=== PATIENT | male | born 1995 | race Hispanic/Latino ===

== ENCOUNTER → 2018-12-01 11:31 | Outpatient (CLI) | payer OTHER, SELFPAY ==
--- NOTE | 2018-12-01 11:33 | DI.RAD.S_ITS ---
PROCEDURE: XR LUMBAR SPINE 2-3V INDICATIONS: low back pain, radiates down left leg TECHNIQUE: 3 views of the lumbar spine were acquired. COMPARISON: [facility], , -SPINE 2-3 VIEWS, 12/08/2011, 11:46. FINDINGS: Bones: 5 pae-set-faerocn vertebrae are present. There is straightening of normal lumbar lordosis. Mild degenerative endplate changes at L4-5 and L5-S1 levels are seen. No vertebral body compression fractures. No suspicious bony lesions. Soft tissues: Overlying bowel gas pattern is normal. No suspicious soft tissue calcifications. IMPRESSION: No acute compression fracture or spondylolisthesis of lumbar spine. Mild degenerative endplate changes in lower lumbar spine. Dictated by: Garcia Crenshaw M.D. on 12/01/2018 at 13:42 Approved by: Garcia Crenshaw M.D. on 12/01/2018 at 13:43
== END ==
PROVIDERS: PCP Family Medicine; Visit Provider Family Medicine
DX: M54.5 Low back pain (principal); M47.26 Other spondylosis with radiculopathy, lumbar region; M47.27 Other spondylosis with radiculopathy, lumbosacral region
CPT/HCPCS: 72100

== ENCOUNTER → 2019-03-03 07:00 | Outpatient (CLI) | payer OTHER, SELFPAY ==
[2019-03-03 08:32] LABS: Alanine Aminotransferase 108 IU/L (21-72); Albumin 4.4 g/dL (3.5-5.0); Albumin Globulin Ratio 1.2 (1.0-2.8); Alkaline Phosphatase 69 U/L (38-126); Aspartate Aminotransferase 75 IU/L (17-59); BUN Creatinine Ratio 23.3 (6-22); Bilirubin Total 0.5 mg/dL (0.2-1.3); Blood Urea Nitrogen 14 mg/dL (9-20); Calcium 8.9 mg/dL (8.4-10.2); Carbon Dioxide 25 mmol/L (22-32); Chloride 102 mmol/L (98-107); Estimated Glomerular Filt Rate > 60.0 mL/min (>60); Globulin 3.6 g/dL (1.7-4.1); Glucose 150 mg/dL (70-100); HEMOLYSIS < 15 (0-50); Potassium 3.9 mmol/L (3.4-5.1); Sodium 139 mmol/L (137-145)
[2019-03-03 08:43] LABS: Vitamin D 25 Hydroxy (D3) 20.1 ng/mL (30.0-100.0)
[2019-03-03 09:01] LABS: Thyroid Stimulating Hormone 1.88 uIU/mL (0.47-4.68)
[2019-03-05 17:23] LABS: Triiodothyronine T3 Total 164 ng/dL (76-181)
== END ==
PROVIDERS: PCP Family Medicine; Visit Provider Internal Medicine
DX: E55.9 Vitamin D deficiency, unspecified (principal); R63.5 Abnormal weight gain; R73.9 Hyperglycemia, unspecified
CPT/HCPCS: 36415; 80053; 82306; 83036; 84439; 84443; 84480

== ENCOUNTER → 2019-12-10 08:31 | Outpatient (CLI) | payer OTHER, SELFPAY ==
[2019-12-10 11:12] LABS: Alanine Aminotransferase 99 IU/L (<50); Albumin 4.4 g/dL (3.5-5.0); Albumin Globulin Ratio 1.4 (1.0-2.8); Alkaline Phosphatase 96 U/L (38-126); Aspartate Aminotransferase 85 IU/L (17-59); BUN Creatinine Ratio 19.6 (6-22); Bilirubin Total 0.7 mg/dL (0.2-1.3); Blood Urea Nitrogen 11 mg/dL (9-20); Calcium 9.4 mg/dL (8.4-10.2); Carbon Dioxide 26 mmol/L (22-32); Chloride 98 mmol/L (98-107); Cholesterol 265 mg/dL (140-199); Estimated Glomerular Filt Rate > 60.0 mL/min (>60); Globulin 3.2 g/dL (1.7-4.1); Glucose 382 mg/dL (70-100); HDL Cholesterol 22 mg/dL (40-60); HEMOLYSIS < 15 (0-50); Potassium 4.6 mmol/L (3.4-5.1); Sodium 134 mmol/L (137-145); Total Protein 7.6 g/dL (6.3-8.2)
[2019-12-10 12:13] LABS: Triglycerides 879 mg/dL (35-150)
[2019-12-10 16:10] LABS: Creatinine Urine Random 70.5 mg/dL
[2019-12-10 16:14] LABS: Microalbumi Creatinin Ratio Ur 56.7 ug/mg CR (<30)
[2019-12-10 16:43] LABS: Hemoglobin A1C% w Est Avg Glu > 14.0 % (4.0-6.0)
== END ==
PROVIDERS: PCP Family Medicine; Referring Provider Physician Assistant; Visit Provider Physician Assistant
DX: Z13.220 Encounter for screening for lipoid disorders (principal); E11.9 Type 2 diabetes mellitus without complications; R20.0 Anesthesia of skin; R20.2 Paresthesia of skin; E66.01 Morbid (severe) obesity due to excess calories
CPT/HCPCS: 36415; 80053; 80061; 82043; 82570; 83036

== ENCOUNTER → 2020-01-25 10:02 | Outpatient (CLI) | payer OTHER, SELFPAY ==
--- NOTE | 2020-01-25 14:56 | DIET.PN ---
Diabetes Intake: Initial Assessment Assess: Mr. Morgan is a 25 YOM referred for type 2 diabetes. He reports he has had pre-diabetes for several years and this is a new diagnosis to him. He has lost over 50 lbs in the last few months through dietary changes. He endorses diabetes signs/symptoms including blurry vision, cramping, sleep apnea and excessive thirst. He works outside all day and states he is generally too tired to exercise in the evening, but is willing to start in order to feel better. He has been prescribed metformin on several occasions by Dr. Fermin at the [facility] clinic and most recent from Dr. Arreguin. He discontinues each time within a week due to severe GI complications. He does not have a meter and has not been monitoring his BG. Labs: Per pt report: A1c: > 14 MicroAlb: 56.7 Chol: 265 LDL: TNP HDL: 22 Tr Meds: metformin (has not been taking. Recommended starting with 500 mg BID) Diet: per 24 hr recall: B: egg w/ carbajal or sausage; yogurt w/ granola L: paco alaniz D: pro, veg, starch Wt: 292lb Ht: 71in BMI: 40.72 BP: DX: Altered nutrition related laboratory values related to impaired glucose metabolism, lack of previous exposure to nutrition information as evidenced by pt report, diagnosis of diabetes, previous diet high in refined carbohydrates. Intervention: 1. Completed intake assessment. Discussed barriers to care. 2. Discussed pathophysiology of diabetes. Reviewed A1c and its correlation to blood glucose numbers. Discussed recommended BG ranges. 3. Discussed importance of self-monitoring, how often, and when to check. Will provide glucometer instruction when he receives his meter. 4. Reviewed hyper/hypoglycemia and treatment. 5. Reviewed safe disposal of equipment (strip/lancets/insulin needles). 6. Discussed importance of medication management. Suggested taking 500mg metformin in the evening. Will discuss the option of metformin XR. 7. Created SMART goals for pt self-care and success. 8. Discussed program curriculum outline and class needs based on individual goals. SMART Goals: 1. Pt goal weight of 270lb through continued dietary improvements and beginning an exercise program including cardiovascular and resistance training for 30min daily. Monitor/Evaluate: Anticipate excellent compliance. Pt will attend full DSME program. Basic Nutrition class scheduled for Feb 01.
== END ==
PROVIDERS: PCP Family Medicine; Referring Provider Family Medicine; Visit Provider Family Medicine
DX: E11.9 Type 2 diabetes mellitus without complications (principal); E66.9 Obesity, unspecified; Z68.41 Body mass index [BMI] 40.0-44.9, adult; Z71.3 Dietary counseling and surveillance
CPT/HCPCS: G0108

== ENCOUNTER → 2020-02-07 10:00 | Outpatient (CLI) | payer OTHER, SELFPAY ==
--- NOTE | 2020-02-07 12:12 | DIET.PN ---
Diabetes Physiology: Intervention 1. Diabetes physiology 2. Detecting and treatment of acute and chronic complications 3. Diagnosis of and difference in types of diabetes 4. Self-monitoring and pattern management a. Demonstrate glucometer and control testing b. Explain BG results and action to take when out of range. 5. Foot , eye, dental care 6. Medications a. Oral medication classification b. Injectable c. Insulin i. Injection protocol ii. Other delivery methods
== END ==
PROVIDERS: PCP Family Medicine; Referring Provider Family Medicine; Visit Provider Family Medicine
DX: E11.9 Type 2 diabetes mellitus without complications (principal)
CPT/HCPCS: G0109

== ENCOUNTER → 2020-02-09 08:41 | Outpatient (CLI) | payer OTHER, SELFPAY ==
[2020-02-09 10:46] LABS: BUN Creatinine Ratio 17.3 (6-22); Blood Urea Nitrogen 9 mg/dL (9-20); Calcium 9.1 mg/dL (8.4-10.2); Carbon Dioxide 27 mmol/L (22-32); Chloride 98 mmol/L (98-107); Estimated Glomerular Filt Rate > 60.0 mL/min (>60); Glucose 351 mg/dL (70-100); HEMOLYSIS < 15 (0-50); Sodium 135 mmol/L (137-145)
[2020-02-09 11:52] LABS: Folate 19.3 ng/mL (2.76-20.0); Vitamin B12 853 pg/mL (239-931)
[2020-02-09 11:54] LABS: Hemoglobin A1C% w Est Avg Glu > 14.0 % (4.0-6.0)
== END ==
PROVIDERS: PCP Family Medicine; Referring Provider Family Medicine; Visit Provider Family Medicine
DX: E11.59 Type 2 diabetes mellitus with other circulatory complications (principal)
CPT/HCPCS: 36415; 80048; 82607; 82746; 83036

== ENCOUNTER → 2020-02-21 14:37 | Outpatient (CLI) | payer OTHER, SELFPAY ==
--- NOTE | 2020-02-21 16:35 | DIET.PN ---
Diabetes: Healthy Eating 1 Intervention: ? Discussed pathophysiology of diabetes and impact of nutrition/diet on blood sugar control.? Discussed fed versus non-fed state.?? ? Reviewed importance of Balance, Variety, and Moderation. ? Discussed the effect of carbohydrates/protein/fat on blood sugar control.? ? Stressed importance of consistent carbohydrate intake at each meal and provided instructions for recommended servings/portions of carbohydrates/protein per meal. Provided educational material. ? Reviewed carbohydrate counting and measuring carbohydrate content via serving sizes and reading nutrition labels.? Provided handouts.?? ? Discussed the difference between simple versus complex carbohydrates and the effect of fiber on blood sugar control.? Discussed various methods to increase fiber content in diet. ? Discussed the plate method for creating more carbohydrate conscious balanced meals. ? Stressed importance of meal timing and not going >4-5 hours between meals. Encouraged adding protein to evening snack to support glucose control overnight. ? Discussed importance of making dietary habits part of lifestyle change.
== END ==
PROVIDERS: PCP Family Medicine; Referring Provider Family Medicine; Visit Provider Family Medicine
DX: E11.9 Type 2 diabetes mellitus without complications (principal); Z71.3 Dietary counseling and surveillance
CPT/HCPCS: G0109

== ENCOUNTER → 2020-03-01 10:01 | Outpatient (CLI) | payer OTHER, SELFPAY ==
--- NOTE | 2020-03-01 16:10 | DIET.PN ---
Diabetes: Healthy Eating 2 Intervention: Fats effects on glucose, weight, heart disease, cholesterol Sat Vs Unsat Protein- animal and plant based options Low, med, high fat meats Sugar substitutes Sodium Health claims Grocery shopping guidelines Eating away from home Alcohol Sick day guidelines Ketone Testing
== END ==
PROVIDERS: PCP Family Medicine; Referring Provider Family Medicine; Visit Provider Family Medicine
DX: E11.9 Type 2 diabetes mellitus without complications (principal); Z71.3 Dietary counseling and surveillance
CPT/HCPCS: G0109

== ENCOUNTER → 2020-03-15 10:07 | Outpatient (CLI) | payer OTHER, SELFPAY ==
--- NOTE | 2020-03-15 10:59 | DIET.PN ---
DIABETES Nutrition Initial Assessment:? ASSESS:??Mr. Morgan is a 25 yom?referred for type 2 diabetes seen as part of DSME program. He has made significant changes to his eating habits over the last several months including replacing starches with whole grains, increasing water intake, reducing sugar sweetened coffee drinks, increasing lean protein, and trying to eat 3 meals per day. He started insulin glargine in January titrating up from 20 u to 50 u 1 x/day. He endorses improvement in his blood sugar readings, however he is still running between 250-350. Recent A1c shows no improvement, but Saba reports improved energy and feeling in overall health and significantly reduced diabetes symptoms. He is active at work but is not engaging in regular exercise. ??? LABS: Per pt report:? A1c: >14 FB-250 Evenin-350 ? MEDS:?? lantus 50 u 1x/day ? DIET: Per 24-hour recall:? B: Arnaldo bread w/ eggs and carbajal, ? apple L: turkey sandwich D: Chicken w/ vegetables; corned beef w/ cabbage Eating Out: few times/week Changes in Appetite: none Nutrition Supplements: none ? Weight: 288 lb Height: 71in BMI: ? 40.2 ? Exercise:? none NUTRITION DX 1. Altered Nutrition related labs related to impaired glucose metabolism, lack of previous exposure to accurate nutrition information as evidenced by pt report, dx of diabetes, previous diet high in refined carbohydrates.? INTERVENTION(s): 1. Reviewed pathophysiology of diabetes and impact of nutrition/diet on blood sugar control.? Discussed fed versus non-fed state.?? 2. Discussed the effect of carbohydrates/protein/fat on blood sugar control.? Stressed importance of consistent carbohydrate intake at each meal and provided instructions for recommended servings/portions of carbohydrates/protein per meal. 3. Reviewed carbohydrate counting and measuring carbohydrate content via serving sizes and reading nutrition labels.? 4. Discussed the difference between simple versus complex carbohydrates and the effect of fiber on blood sugar control.? Discussed various methods to increase fiber content in diet. 5. Stressed importance of meal timing and not going >4-5 hours between meals. Encouraged adding protein to evening snack to support glucose control overnight. Patient agreeable. 6. Discussed healthy weight loss goals of 1-2lbs per week through diet and exercise.? Pt agreeable to joining local fitness center to incorporate strength training at least 3x/week. 7. Recommend monitoring fasting and alternating 2 hr PP mealtime glucose. MONITOR/EVALUATE: Anticipate good compliance.? Follow up to discuss medication management. Discussed possibility of splitting insulin dose to 25u am and pm. Will follow up with Dr. Arreguin.
== END ==
PROVIDERS: PCP Family Medicine; Referring Provider Family Medicine; Visit Provider Family Medicine
DX: E11.65 Type 2 diabetes mellitus with hyperglycemia (principal); E66.9 Obesity, unspecified; Z68.41 Body mass index [BMI] 40.0-44.9, adult; Z71.3 Dietary counseling and surveillance; Z79.4 Long term (current) use of insulin
CPT/HCPCS: G0109

== ENCOUNTER → 2020-04-24 06:55 | Outpatient (CLI) | payer OTHER, SELFPAY ==
[2020-04-24 09:08] LABS: Blood Urea Nitrogen 13 mg/dL (9-20); Calcium 9.1 mg/dL (8.4-10.2); Carbon Dioxide 29 mmol/L (22-32); Chloride 102 mmol/L (98-107); Cholesterol 213 mg/dL (140-199); Estimated Glomerular Filt Rate > 60.0 mL/min (>60); Glucose 232 mg/dL (70-100); HDL Cholesterol 32 mg/dL (40-60); HEMOLYSIS < 15 (0-50); LDL Cholesterol Calculated 134 mg/dL (<100); Sodium 137 mmol/L (137-145); Triglycerides 237 mg/dL (35-150)
[2020-04-24 09:18] LABS: Creatinine Urine Random 187.5 mg/dL; Hemoglobin A1C% w Est Avg Glu 12.6 % (4.0-6.0)
[2020-04-24 09:24] LABS: Microalbumi Creatinin Ratio Ur 29.3 ug/mg CR (<30); Microalbumin Urine Random 5.5 mg/dL (0-1.6)
== END ==
PROVIDERS: PCP Family Medicine; Referring Provider Family Medicine; Visit Provider Family Medicine
DX: E11.65 Type 2 diabetes mellitus with hyperglycemia (principal)
CPT/HCPCS: 36415; 80048; 80061; 82043; 82570; 83036

== ENCOUNTER → 2020-07-19 12:23 | Outpatient (CLI) | payer OTHER, SELFPAY ==
--- NOTE | 2020-07-19 15:48 | DIET.PN ---
Diabetes Follow Up Assess: Met for Mr. Morgan?s follow up visit. His A1c has come down slightly as well as his total cholesterol and triglycerides. He reports lower fasting readings, but evening blood sugars remain extremely elevated. Since our last visit he started metformin XR 1000mg qd, increased his lantus to 70u am and 75u pm and was placed on statin therapy. He admits he has not been exercising and that his eating habits have not been very good since the holidays. He presents with concerns regarding insulin dosage and continued hyperglycemia. He complains of a herniated disc from high school that has been increasingly bothering him over the last few months. He is interested in discussing a cortisone shot or possible surgery. I encouraged him to focus on weight loss to start. Labs: A1c: 12.6 FB?s 2hrPP: 250-270 Meds: metformin XR 1000mg evening; lantus 70u am/75u pm Dietary changes: na Ht: 71in Wt: 304lb BMI: 42.4 Nutrition DX: Altered nutrition related laboratory values related to impaired glucose metabolism, lack of previous exposure to nutrition information as evidenced by pt report, diagnosis of diabetes, previous diet high in refined carbohydrates. Intervention: 1. Completed follow up assessment. Reviewed barriers to care. 2. Reviewed new labs and importance of continued BG monitoring. 3. Discussed medication management. Considering patients concerns with high glargine dosing, discussed considering meal-time insulin. Discussed instruction in depth. Pt not thrilled but will to discuss further for better glucose control. Will follow up with provider Dr. Arreguin. 4. Reviewed SMART goals and made modifications where appropriate including wt management, activity, and A1c goals. 5. Discussed plan for ongoing support. Provided information for continued support and success. Monitor/Evaluate: Pt will follow up in 3 mo to discuss new labs and barriers to care.
== END ==
PROVIDERS: PCP Family Medicine; Referring Provider Family Medicine; Visit Provider Family Medicine
DX: E11.65 Type 2 diabetes mellitus with hyperglycemia (principal); E66.9 Obesity, unspecified; Z79.4 Long term (current) use of insulin; Z68.41 Body mass index [BMI] 40.0-44.9, adult; Z71.3 Dietary counseling and surveillance
CPT/HCPCS: G0109

== ENCOUNTER → 2020-07-23 07:33 | Outpatient (CLI) | payer OTHER, SELFPAY ==
[2020-07-23 08:41] LABS: Hemoglobin A1C% w Est Avg Glu 10.7 % (4.0-6.0)
[2020-07-23 08:59] LABS: BUN Creatinine Ratio 19.4 (6-22); Blood Urea Nitrogen 12 mg/dL (9-20); Carbon Dioxide 30 mmol/L (22-32); Chloride 103 mmol/L (98-107); Estimated Glomerular Filt Rate > 60.0 mL/min (>60); Glucose 292 mg/dL (70-100); HEMOLYSIS < 15 (0-50); Potassium 4.4 mmol/L (3.4-5.1); Sodium 138 mmol/L (137-145)
== END ==
PROVIDERS: PCP Family Medicine; Referring Provider Family Medicine; Visit Provider Family Medicine
DX: E11.65 Type 2 diabetes mellitus with hyperglycemia (principal)
CPT/HCPCS: 36415; 80048; 83036

== ENCOUNTER → 2020-08-27 11:38 | Outpatient (CLI) | payer OTHER, SELFPAY ==
--- NOTE | 2020-08-27 11:39 | DI.RAD.S_ITS ---
PROCEDURE: XR LUMBAR SPINE 2-3V INDICATIONS: Lumbar spine pain TECHNIQUE: 3 views of the lumbar spine were acquired. COMPARISON: [facility], CR, XR LUMBAR SPINE 2-3V, 12/01/2018, 11:35. FINDINGS: Bones: No fracture. Levocurvature centered at L2-L3. Multilevel degenerative endplate sclerosis and spurring. Diffuse facet arthropathy. Diffuse mild narrowing of the lumbar disc spaces. Soft tissues: Overlying bowel gas pattern is normal. No suspicious soft tissue calcifications. IMPRESSION: Mild lumbar spondylosis and facet disease. Mild levocurvature . Dictated by: Rolf Reardon M.D. on 08/27/2020 at 15:59 Approved by: Rolf Reardon M.D. on 08/27/2020 at 16:00
== END ==
PROVIDERS: PCP Family Medicine; Referring Provider Family Medicine; Visit Provider Family Medicine
DX: M54.5 Low back pain (principal); M47.816 Spondylosis without myelopathy or radiculopathy, lumbar region
CPT/HCPCS: 72100

== ENCOUNTER 2020-09-16 11:55 | Emergency (ER) | payer OTHER, SELFPAY ==
[2020-09-16] VITALS (10 sets, daily range): BP systolic 132–146; BP diastolic 59–94; PULSE 58–87; RESP 20–22; TEMP 36.7; O2SAT 96–99; BMI 43.9
[2020-09-16 12:29] LABS: Add Manual Diff / Slide Review NO; Basophils Absolute Auto 100 /uL (0-100); Basophils Percent Auto 1.1 % (0-2); Eosinophils Absolute Auto 200 /uL (0-450); Eosinophils Percent Auto 3.2 % (2-4); Hematocrit 49.4 % (41-53); Hemoglobin 16.3 g/dL (13.5-17.5); Lymphocytes Absolute Auto 2000 /uL (1100-4500); Mean Corpuscular HGB Conc 33.1 % (30-36); Mean Corpuscular Hemoglobin 28.5 PG (26-34); Monocytes Absolute Auto 400 /uL (0-900); Monocytes Percent Auto 5.9 % (3-14); Neutrophils Absolute Auto 4900 /uL (1500-7000); Neutrophils Percent Auto 63.8 % (50-75); Platelet Count 166 X10^3/uL (150-400); Red Blood Cell Count 5.74 X10^6/uL (4.5-5.9); Red Cell Distribution Width 13.4 % (11.6-14.8); White Blood Cell Count 7.6 X10^3/uL (4.5-11.0)
[2020-09-16 12:32] LABS: INR 1.1 (0.9-1.3); Prothrombin Time 12.8 SECONDS (10.1-12.7)
[2020-09-16 12:35] LABS: PTT Partial Thromboplastin Tim 37 SECONDS (26.4-36.2)
[2020-09-16 12:37] LABS: Alanine Aminotransferase 93 IU/L (<50); Albumin 4.5 g/dL (3.5-5.0); Albumin Globulin Ratio 1.3 (1.0-2.8); Alkaline Phosphatase 72 U/L (38-126); Aspartate Aminotransferase 60 IU/L (17-59); BUN Creatinine Ratio 14.3 (6-22); Bilirubin Total 0.4 mg/dL (0.2-1.3); Blood Urea Nitrogen 8 mg/dL (9-20); Carbon Dioxide 26 mmol/L (22-32); Chloride 102 mmol/L (98-107); Estimated Glomerular Filt Rate > 60.0 mL/min (>60); Globulin 3.6 g/dL (1.7-4.1); Glucose 288 mg/dL (70-100); HEMOLYSIS 18 (0-50); Lipase 49 U/L (23-300); Potassium 4.5 mmol/L (3.4-5.1); Sodium 136 mmol/L (137-145); Total Protein 8.1 g/dL (6.3-8.2)
--- NOTE | 2020-09-16 13:38 | ED_ITS ---
HPI - Abdominal Pain General Chief Complaint: Abdominal Pain Stated Complaint: Lower Right Side Abd Pain, Black Stool Time Seen by Provider: 09/16/20 12:59 Source: patient Mode of arrival: Ambulatory Limitations: no limitations History of Present Illness HPI narrative: Patient is a 25-year-old male with BMI greater than 40 history of diabetes presenting with right lower quadrant pain which started today. He actually has had some diarrhea which started yesterday and has had some abdominal pain which is localized in his right side. He states that it hurts whenever he walks. He did take Pepto-Bismol yesterday and is noticing some black stools. He denies any nausea vomiting or fever. He does not need anythi ng for pain at this time. He was able to eat full breakfast this morning. He denies any flank pain no painful or frequent urination. MD complaint: abdominal pain Onset (ago): day(s) Pain Consistency: constant Severity: moderate Quality: stabbing Radiation: none Related Data Previous Rx's Medication Instructions Recorded glucose meter,test strips,lancets #1 ea 01/25/20 test strips #60 each 02/09/20 lancets (Ultra touch 2 meter) #100 each 04/17/20 solostar pen needles #100 each 04/17/20 atorvastatin 20 mg tablet 20 mg PO BEDTIME #90 tab 04/24/20 metformin 1,000 mg tablet 1,000 mg PO BID #60 tab 05/03/20 lisinopril 10 mg tablet 10 mg PO DAILY #90 tab 07/23/20 insulin glargine 100 unit/mL (3 See Rx Instructions SUBCUT 08/06/20 mL) subcutaneous pen .COMPLEX #90 ml Allergies Allergy/AdvReac Type Severity Reaction Status Date / Time cat dander [CAT DANDER] Allergy Unknown Verified 04/24/20 08:55 Penicillins AdvReac Intermediate VOMITING Verified 04/24/20 08:55 Review of Systems Review of Systems ROS Unobtainable: All systems reviewed & are unremarkable except as noted in HPI and below Constitutional Constitutional: Denies chills, Denies fever(s), Denies lethargy and Denies weakness ENT Ears, Nose, Mouth, and Throat: Denies vertigo and Denies dizziness Cardiovascular Cardiovascular: Denies chest pain, Denies irregular heart rhythm, Denies lightheadedness, Denies palpitations, Denies dyspnea, Denies dyspnea on exertion and Denies orthopnea Respiratory Respiratory: Denies cough, Denies dyspnea, Denies dyspnea on exertion and Denies wheezing Gastrointestinal Gastrointestinal: Reports as per HPI, Reports abdominal pain, Reports change in bowel habits, Reports diarrhea, Denies nausea and Denies vomiting Genitourinary Genitourinary: Denies urinary hesitancy and Denies urinary urgency Genitourinary: Denies urinary hesitancy and Denies urinary urgency Musculoskeletal Musculoskeletal: Denies back pain and Denies myalgias Integumentary/Breasts Skin/Breast: Denies pruritus, Denies erythema, Denies rash and Denies wounds Neurologic Neurologic: Denies abnormal movements, Denies vertigo, Denies dizziness and Denies weakness Endocrine Endocrine: Denies palpitations Allergic/Immunologic Allergic/Immunologic: Denies wheezing Patient History Medical History (Updated 09/16/20 @ 14:46 by Loly Parra DO) Diabetes mellitus Fatigue (~2016) Long-term insulin use in type 2 diabetes Morbid obesity with body mass index (BMI) of 40.0 to 49.9 Nocturnal hypoxemia (06/17/19) Obstructive sleep apnea (~06/17/19) Snoring (~2014) Surgical History Anesthesia History of third molar tooth extraction (~1999) Family History Father Diabetes mellitus Grandmother Schizophrenia Bipolar 1 disorder Mother Diabetes mellitus Hypertension Obesity Social History marital status: unmarried,single Smoking Status: Current every day smoker alcohol intake: current substance use type: marijuana eating out: 1-3 times/week Type(s) of exercise: none Smoking Status: Current every day smoker alcohol intake frequency: 0-2 drinks per day Substance Use Type: marijuana Exam Initial Vital Signs Initial Vital Signs: Vital Signs Temperature 98.1 F 09/16/20 12:05 Pulse Rate 84 09/16/20 12:05 Respiratory Rate 20 09/16/20 12:05 Blood Pressure 144/94 H 09/16/20 12:05 Pulse Oximetry 97 09/16/20 12:05 GENERAL: Well-appearing 25-year-old male and in no acute distress. HEENT: Head atraumatic,EOMI, pupils reactive, face symmetric, moist mucous membranes CARDIOVASCULAR: Regular rate and rhythm without murmurs, rubs or gallops. RESPIRATORY: Breath sounds equal bilaterally, no wheezes rales or rhonchi. ABDOMEN: Soft tender right lower quadrant no guarding or rebound EXTREMITIES: Normal range of motion, no clubbing or edema. Neurovascularly intact NEUROLOGICAL: Alert and oriented x4.Normal gait and speech. SKIN: Warm, dry, no laceration, no petechiae, no rashes or lesions. Course Orders Ordered: ED Orders 09/16/20 12:16 Complete Blood Count AUTO DIFF Stat Comprehensive Metabolic Panel Stat Lipase Stat Partial Thromboplastin Time Stat Prothrombin Time INR Stat 09/16/20 12:19 EKG-12 Lead Stat 09/16/20 13:47 CT abdomen pelvis w con Stat Vital Signs Vital signs: Vital Signs - 8 hr 09/16/20 12:05 09/16/20 12:27 09/16/20 12:30 Temperature 98.1 F Pulse Rate 84 87 83 Respiratory Rate 20 Blood Pressure 144/94 H 136/63 Pulse Oximetry 97 97 96 09/16/20 13:00 09/16/20 13:16 09/16/20 13:30 Temperature Pulse Rate 71 85 80 Respiratory Rate Blood Pressure 146/75 H 135/68 Pulse Oximetry 96 97 97 09/16/20 14:02 09/16/20 14:26 09/16/20 14:30 Temperature Pulse Rate 83 83 58 L Respiratory Rate Blood Pressure 141/63 H 132/59 L Pulse Oximetry 98 97 96 09/16/20 14:53 Temperature Pulse Rate 79 Respiratory Rate 22 Blood Pressure Pulse Oximetry 99 MDM - Abdominal Pain Lab Data Attestation: I reviewed the patient's lab results. Result diagrams: 09/16/20 12:16 09/16/20 12:16 Labs: Lab Results 09/16/20 09/16/20 09/16/20 Range/Units 12:16 12:16 12:16 WBC 7.6 (4.5-11.0) X10^3/uL RBC 5.74 (4.5-5.9) X10^6/uL Hgb 16.3 (13.5-17.5) g/dL Hct 49.4 (41-53) % MCV 86.0 (80-100) fL MCH 28.5 (26-34) PG MCHC 33.1 (30-36) % RDW 13.4 (11.6-14.8) % Plt Count 166 (150-400) X10^3/uL Neut % (Auto) 63.8 (50-75) % Lymph % (Auto) 26.0 (25-40) % Avery % (Auto) 5.9 (3-14) % Eos % (Auto) 3.2 (2-4) % Baso % (Auto) 1.1 (0-2) % Neut # (Auto) 4900 (9297-0015) /uL Lymph # (Auto) 2000 (5503-2089) /uL Avery # (Auto) 400 (0-900) /uL Eos # (Auto) 200 (0-450) /uL Baso # (Auto) 100 (0-100) /uL PT 12.8 H (10.1-12.7) SECONDS INR 1.1 (0.9-1.3) APTT 37 H (26.4-36.2) SECONDS Sodium 136 L (137-145) mmol/L Potassium 4.5 (3.4-5.1) mmol/L Chloride 102 (98-107) mmol/L Carbon Dioxide 26 (22-32) mmol/L BUN 8 L (9-20) mg/dL Creatinine 0.56 L (0.66-1.25) mg/dL Estimated GFR > 60.0 (>60) mL/min BUN/Creatinine Ratio 14.3 (6-22) Glucose 288 H (70-100) mg/dL Calcium 9.0 (8.4-10.2) mg/dL Total Bilirubin 0.4 (0.2-1.3) mg/dL AST 60 H (17-59) IU/L ALT 93 H (<50) IU/L Alkaline Phosphatase 72 (38-126) U/L Total Protein 8.1 (6.3-8.2) g/dL Albumin 4.5 (3.5-5.0) g/dL Globulin 3.6 (1.7-4.1) g/dL Albumin/Globulin Ratio 1.3 (1.0-2.8) Lipase 49 (23-300) U/L Point of care testing: Urine Dip Bedside Urine Glucose 1000 mg/dl Bedside Urine Bilirubin - Negative Bedside Urine Ketone - Negative Urine Specific Jackson 1.025 Bedside Urine Occult Blood - Negative Bedside Urine pH 6 Bedside Urine Protein - Negative Bedside Urine Urobilinogen - Negative Bedside Urine Nitrite - Negative Bedside Urine Leukocytes - Negative Esterase Imaging Data CT scan - abdomen/pelvis: Radiologist's Impression: PROCEDURE: CT ABDOMEN PELVIS W CON INDICATIONS: rlq pain TECHNIQUE: After the administration of intravenous contrast, 5 mm thick sections acquired from the diaphragm to the symphysis. 5 mm coronal and sagittal reformats were acquired. For radiation dose reduction, the following was used: automated exposure control, adjustment of mA and/or kV according to patient size. COMPARISON: None. FINDINGS: Image quality: Excellent. ABDOMEN: Lung bases: Lung bases are clear. Heart size is normal. Solid organs: There is diffuse hypoattenuation of the liver consistent with fatty infiltration with mild relative sparing along the gallbladder fossa. The gallbladder appears within normal limits without calcified gallstones. Biliary system is non-dilated. Pancreas enhances normally. No peripancreatic fat stranding or fluid collections. No pancreatic duct dilatation. The spleen is normal in size. No adrenal nodules. Kidneys demonstrate no hydronephrosis. Peritoneum and bowel: Small bowel loops demonstrate normal wall thickness and caliber. The appendix is normal in appearance. There is colonic diverticulosis without acute diverticulitis. There is suggestion of mild wall thickening in the sigmoid colon, with evaluation limited by nondistention. No free fluid or air. Nodes and vessels: No retroperitoneal or mesenteric adenopathy by size criteria. Aorta and inferior vena cava are normal in size. Miscellaneous: No ventral hernias. PELVIS: Genitourinary: There is mild concentric bladder wall thickening with minimal pericystic fat stranding. Miscellaneous: No inguinal hernias or adenopathy. Bones: No suspicious bony lesions. No vertebral body compression fractures. IMPRESSION: 1. No evidence of appendicitis. 2. Hepatic steatosis. 3. Mild bladder wall thickening with minimal pericystic fat stranding. Findings may reflect a mild cystitis and correlation is recommended with urinalysis. 4. Suggestion of mild segmental wall thickening involving the sigmoid colon which may reflect a mild colitis. However, the findings may be artifactual due to nondistention of the bowel. Dictated by: Torres Stephenson M.D. on 09/16/2020 at 14:14 ECG Data Attestation: I personally reviewed and interpreted this ECG as follows: Prior ECG tracings: not available for review Interpretation: Normal sinus rhythm rate 79 p.r. interval 154 QRS [address] changes or T-wave inversions MDM Narrative Medical decision making narrative: Patient overall appears well no leukocytosis. A black stool seem to started after Pepto-Bismol although it is questionable. He says the diarrhea has completely stopped now. Hemoglobin hematocrit are within normal limits. At this time I suspect the abdominal pain is likely related to viral gastroenteritis. Discharge Plan Departure Patient Disposition: Home Clinical Impression: Abdominal pain Qualifiers: Abdominal location: right lower quadrant Qualified Code(s): R10.31 - Right lower quadrant pain Instructions: DI for Viral Gastroenteritis -- Adult, DI for Abdominal Pain- Adult Activity Restrictions/Additional Instructions: *You have been diagnosed with abdominal pain, gastritis *What to do: Here pain is probably related to a stomach virus with diarrhea. Her blood work and CT scan do not show any abnormality. There is no sign of infection. Pepto-Bismol can cause blackening of your stool. *Continue to take medications as directed *Follow up with your primary care provider in 2-3 days *Return to ER if you should have increasing pain, persistent diarrhea, persistent vomiting nausea or any new, worsening or concerning symptoms Prescriptions: No Action atorvastatin 20 mg tablet 20 mg PO BEDTIME Qty: 90 RF: 3 (DME) test strips Qty: 60 RF: 12 lisinopril 10 mg tablet 10 mg PO DAILY Qty: 90 RF: 3 (DME) glucose meter,test strips,lancets Qty: 1 RF: 0 (DME) lancets (Ultra touch 2 meter) Qty: 100 RF: 11 (DME) solostar pen needles Qty: 100 RF: 3 metformin 1,000 mg tablet 1,000 mg PO BID Qty: 60 RF: 0 Lantus Solostar U-100 Insulin 100 unit/mL (3 mL) insulin pen See Rx Instructions SUBCUT .COMPLEX Qty: 90 RF: 1 Referrals: Vel Arreguin MD [Primary Care Provider] -
--- NOTE | 2020-09-16 13:47 | DI.CT.S_ITS ---
PROCEDURE: CT ABDOMEN PELVIS W CON INDICATIONS: rlq pain TECHNIQUE: After the administration of intravenous contrast, 5 mm thick sections acquired from the diaphragm to the symphysis. 5 mm coronal and sagittal reformats were acquired. For radiation dose reduction, the following was used: automated exposure control, adjustment of mA and/or kV according to patient size. COMPARISON: None. FINDINGS: Image quality: Excellent. ABDOMEN: Lung bases: Lung bases are clear. Heart size is normal. Solid organs: There is diffuse hypoattenuation of the liver consistent with fatty infiltration with mild relative sparing along the gallbladder fossa. The gallbladder appears within normal limits without calcified gallstones. Biliary system is non-dilated. Pancreas enhances normally. No peripancreatic fat stranding or fluid collections. No pancreatic duct dilatation. The spleen is normal in size. No adrenal nodules. Kidneys demonstrate no hydronephrosis. Peritoneum and bowel: Small bowel loops demonstrate normal wall thickness and caliber. The appendix is normal in appearance. There is colonic diverticulosis without acute diverticulitis. There is suggestion of mild wall thickening in the sigmoid colon, with evaluation limited by nondistention. No free fluid or air. Nodes and vessels: No retroperitoneal or mesenteric adenopathy by size criteria. Aorta and inferior vena cava are normal in size. Miscellaneous: No ventral hernias. PELVIS: Genitourinary: There is mild concentric bladder wall thickening with minimal pericystic fat stranding. Miscellaneous: No inguinal hernias or adenopathy. Bones: No suspicious bony lesions. No vertebral body compression fractures. IMPRESSION: 1. No evidence of appendicitis. 2. Hepatic steatosis. 3. Mild bladder wall thickening with minimal pericystic fat stranding. Findings may reflect a mild cystitis and correlation is recommended with urinalysis. 4. Suggestion of mild segmental wall thickening involving the sigmoid colon which may reflect a mild colitis. However, the findings may be artifactual due to nondistention of the bowel. Dictated by: Torres Stephenson M.D. on 09/16/2020 at 14:14 Approved by: Torres Stephenson M.D. on 09/16/2020 at 14:18
== END 2020-09-16 14:54 | disposition home or self-care (01) ==
PROVIDERS: Emergency Provider Emergency Medicine; PCP Family Medicine
DX: R10.31 Right lower quadrant pain (principal)
CPT/HCPCS: 36415; 74177; 80053; 81003; 83690; 85025; 85610; 85730; 93005; 99283; 99284; Q9967

== ENCOUNTER → 2020-10-22 07:10 | Outpatient (CLI) | payer OTHER, SELFPAY ==
[2020-10-22 08:26] LABS: Hemoglobin A1C% w Est Avg Glu 9.3 % (4.0-6.0)
== END ==
PROVIDERS: PCP Family Medicine; Referring Provider Family Medicine; Visit Provider Family Medicine
DX: E11.9 Type 2 diabetes mellitus without complications (principal)
CPT/HCPCS: 36415; 83036

== ENCOUNTER → 2020-11-06 07:05 | Outpatient (CLI) | payer OTHER, SELFPAY ==
[2020-11-06 11:18] LABS: COVID19 -Nasal RAPID Negative (Negative)
== END ==
PROVIDERS: PCP Family Medicine; Visit Provider Physical Medicine & Rehabilitation
DX: Z20.822 Contact with and (suspected) exposure to COVID-19 (principal)
CPT/HCPCS: 87635; C9803

== ENCOUNTER 2020-11-08 07:40 | Outpatient (CLI) | payer OTHER, SELFPAY ==
[2020-11-08] VITALS (8 sets, daily range): BP systolic 120–139; BP diastolic 55–73; PULSE 95–106; RESP 17–21; TEMP 36.4; O2SAT 94–96
--- NOTE | 2020-11-08 07:41 | DI.RAD.S_ITS ---
PROCEDURE: PAIN L/S TRANSFORAMINAL INJECT INDICATIONS: SPONDYLOSIS COMPARISON: [facility], CR, XR LUMBAR SPINE 2-3V, 08/27/2020, 12:05. FINDINGS: Fluoroscopic spot filming was performed to verify placement of a spinal needle at the L4-L5 level, as labeled on the films. Appropriate location of the needle tip was confirmed by injection of iodinated contrast. IMPRESSION: Intraprocedural examination within normal limits. Dictated by: Richar Maxwell M.D. on 11/08/2020 at 9:49 Approved by: Richar Maxwell M.D. on 11/08/2020 at 9:50
[2020-11-08] MEDS: fentaNYL 100 MCG/2 ML INJ 50 MCG IV (08:21)
[2020-11-08] MEDS: MIDAZOLAM 5 MG/5 ML VIAL IV (08:24)
[2020-11-08] MEDS: IOPAMIDOL 15 ML VIAL 3 ML INJ (08:30)
[2020-11-08] MEDS: BUPIVACAINE 0.25% (PF) VIAL 2 ML INJ (08:30)
[2020-11-08] MEDS: BETAMETHASONE 30 MG/5 ML MDV 6 MG INJ (08:30)
[2020-11-08] MEDS: DEXAMETHASONE 10 MG/ML VIAL 20 MG INJ (08:31)
--- NOTE | 2020-11-08 08:39 | P.PCN_ITS ---
Date/Time/Diagnoses Date of procedure: 11/08/20 Time of procedure: 08:40 Pre-procedure diagnosis: 1. FORAMINAL STENOSIS WITH LE SYMPTOMS Post-procedure diagnosis: same Procedure Notes Procedure: 1. FLUOROSCOPICALLY GUIDED CONTRAST CONTROLLED TRANSFORAMINAL EPIDURAL STEROID INJECTION - LEFT L4/5 Indications: Saba is referred by Dr. Arreguin for treatment of Foraminal Stenosis with Left LE Symptoms Physician: Eamon Cheney Total Fluoroscopy time (seconds): 8 Total sedation minutes: 13 Complications: none Procedure in detail & Post-procedure care: FINDINGS Foraminal Nerve Root Compression secondary to disc disease and facet hypertrophy DESCRIPTION OF PROCEDURE Following review of allergy and review of potential side effects and complications, including, but not necessarily limited to, infection, allergic reaction, local tissue breakdown, stroke, temporary or permanent nerve injury, paralysis, and possible , the patient indicated that the patient understood and agreed to proceed. An informed consent document was signed by the patient, witnessed by a nurse, and placed in the patient's chart. Additionally, other treatment options including medications, modalities, and physical therapy were reviewed with the patient. After review of previous anaesthesic history and IV conscious sedation the patient was deemed safe to proceed with today?s procedure with IV conscious sedation as ASA class II designation. Safety time-out was performed to confirm patient ID, procedure to be performed and site of procedure. IV sedation was accomplished with a combination of 4mg of Versed and 50mcg of Fentanyl administered by the RN after DO order, titrated to patient comfort during the course of the procedure while the patient remained responsive to all verbal commands In the prone position following sterile prep and drape of the lumbar region, the left L4/5 posterior neuroforamen was identified fluoroscopically. The skin was anesthetized via a 25-gauge 1.5-inch needle with 1% lidocaine solution. At this point, a 22-gauge 5-inch spinal needle was atraumatically introduced and advanced under fluoroscopic guidance through the posterior left L4/5 neuroforamen to approximately the anterior aspect of the canal. Depth was confirmed on lateral view. Following negative aspiration, injection of approximately 1.5 cc of Isovue 200 under live fluoroscopy in the AP view confirmed excellent flow along the nerve root, into the epidural space without vascular or intrathecal uptake observed Radiological data, including multiple fluoroscopic views of the lumbosacral s pine, reveal a spinal needle at the left L4/5 posterior neuroforamen. Subsequent views show flow of contrast material flowing superiorly and inferiorly along the nerve root confirming epidural flow. Subsequently, a test dose of 1.5 cc of 1% lidocaine solution was administered and patient was observed for two minutes for signs or symptoms of complications, including abdominal pain, shortness of breath, bilateral upper or lower extremity weakness, nausea and vomiting, prior to steroid injection. At this point, a total of 3cc or 20mg of dexamethasone and 6mg of betamethasone was injected without incident. The procedure tolerated the procedure well without signs or symptoms of complications prior to transfer to the recovery area continued monitoring without incident. The patient was then transferred to the recovery area where they were observed for an appropriate time after the injection. The patient reported a VAS score of 7 prior to the procedure and a post- procedure VAS of 0. POST OP INSTRUCTIONS The patient was provided a Pain Log to continue to record their response to the target-specific procedure prior to follow-up visit with their referring physician. Additionally, specific post-injection care instructions and a contact number to our office were provided if concerns arise regarding possible complications associated with the procedure are suspected.
== END 2020-11-08 09:02 | disposition home or self-care (01) ==
PROVIDERS: PCP Family Medicine; Referring Provider Physical Medicine & Rehabilitation; Visit Provider Physical Medicine & Rehabilitation
DX: M48.061 Spinal stenosis, lumbar region without neurogenic claudication (principal); M51.16 Intervertebral disc disorders with radiculopathy, lumbar region
CPT/HCPCS: 64483; 99152; J0702; J1100; J2250; J3010

== ENCOUNTER → 2021-02-11 08:28 | Outpatient (CLI) | payer OTHER, SELFPAY ==
[2021-02-11 12:00] LABS: COVID19 -Nasal RAPID Negative (Negative)
== END ==
PROVIDERS: PCP Family Medicine; Visit Provider Physical Medicine & Rehabilitation
DX: Z20.822 Contact with and (suspected) exposure to COVID-19 (principal)
CPT/HCPCS: 87635; C9803

== ENCOUNTER 2021-02-12 12:49 | Outpatient (CLI) | payer OTHER, SELFPAY ==
[2021-02-12] VITALS (8 sets, daily range): BP systolic 122–164; BP diastolic 56–88; PULSE 83–99; RESP 13–26; TEMP 36.9; O2SAT 95–98
--- NOTE | 2021-02-12 12:50 | DI.RAD.S_ITS ---
PROCEDURE: PAIN L/SI FACET INJ/BLK 1STL INDICATIONS: SPONDYLOSIS COMPARISON: [facility], , PAIN L/S TRANSFORAMINAL INJECT, 11/08/2020, 8:28. FINDINGS: Fluoroscopic spot filming was performed to verify placement of spinal needles at the L4-L5 and L5-S1 level(s), as labeled on the films. Appropriate location(s) of the needle tip(s) was confirmed by injection of iodinated contrast. IMPRESSION: Intraprocedural examination within normal limits. Dictated by: Richar Maxwell M.D. on 02/12/2021 at 13:45 Approved by: Richar Maxwell M.D. on 02/12/2021 at 13:46
[2021-02-12] MEDS: fentaNYL 100 MCG/2 ML INJ 50 MCG IV (13:58)
[2021-02-12] MEDS: MIDAZOLAM 5 MG/5 ML VIAL IV (13:58)
[2021-02-12] MEDS: IOPAMIDOL 15 ML VIAL 3 ML INJ (14:02)
[2021-02-12] MEDS: BETAMETHASONE 30 MG/5 ML MDV 12 MG INJ (14:03)
[2021-02-12] MEDS: BUPIVACAINE 0.5% (PF) VIAL 2 ML INJ (14:03)
--- NOTE | 2021-02-12 14:18 | P.PCN_ITS ---
Date/Time/Diagnoses Date of procedure: 02/12/21 Time of procedure: 14:18 Pre-procedure diagnosis: 1. FACET ARTHROPATHY, 2. AXIAL LBP, 3. MULTILEVEL DDD Post-procedure diagnosis: same Procedure Notes Procedure: 1. FLUOROSCOPICALLY GUIDED CONTRAST CONTROLLED FACET JOINT INJECTIONS LEFT L4/5, L5/S1 Indications: Saba is referred by Dr. Arreguin for treatment of Axial LBP Physician: Eamon Cheney Total Fluoroscopy time (seconds): 10 Total sedation minutes: 13 Complications: none Procedure in detail & Post-procedure care: FINDINGS Multilevel Facet Arthropathy with Clinically significant axial LBP DESCRIPTION OF PROCEDURE Fluoroscopically guided, contrast-controlled left L4/5, L5/S1 facet joint injections. Following review of allergy and review of potential side effects and c omplications, including, but not necessarily limited to, infection, allergic reaction, local tissue breakdown, stroke, temporary or permanent nerve injury, paralysis, and possible , the patient indicated that the patient understood and agreed to proceed. An informed consent document was signed by the patient, witnessed by a nurse, and placed in the patient's chart. Additionally, other treatment options including medications, modalities, and physical therapy were reviewed with the patient. After review of previous anaesthesic history and IV conscious sedation the patient was deemed safe to proceed with today?s procedure with IV conscious sedation as ASA class II designation. Safety time-out was performed to confirm patient ID, procedure to be performed and site of procedure. IV sedation was accomplished with a combination of 3mg of Versed and 50mcg of Fentanylwas administered by the RN after DO order, titrated to patient comfort during the course of the procedure while the patient remained responsive to all verbal commands. In the prone position, following sterile prep and drape of the lumbar region, the posterior aspect of the left L4/5, L5/S1 facet joints were identified fluoroscopically. The skin was anesthetized via a 25-gauge 1.5-inch needle with 1% lidocaine solution into the corresponding facet joints. At this point, a 22- gauge 3.5-inch spinal needle was atraumatically introduced and advanced under fluoroscopic guidance into the corresponding facet joints. Following negative aspiration, injections of approximately 0.2-cc of Isovue 200 confirmed interart icular placement without vascular uptake. Radiological data, including multiple fluoroscopic views of the lumbosacral spine, reveal a spinal needle at the left L4/5, L5/S1 facet joints. Subsequent views show flow of contrast material both superiorly and inferiorly within the joint space without vascular or intrathecal uptake. At this point, a total of 0.5 cc including a mixture of 0.25cc Marcaine and 0.25cc betamethasone was injected without complication into each of the corresponding facet joints. The procedure tolerated the procedure well without signs or symptoms of complications prior to transfer to the recovery area continued monitoring without incident. The patient was then transferred to the recovery area where they were observed for an appropriate period of time after the injection. The patient reported a VAS score of 7 prior to the procedure and a post-procedure VAS of 0. POST OP INSTRUCTIONS The patient was provided a Pain Log to continue to record their response to the target-specific procedure prior to follow-up visit with their referring physician. Additionally, specific post-injection care instructions and a contact number to our office were provided if concerns arise regarding possible complications associated with the procedure are suspected.
== END 2021-02-12 14:35 | disposition home or self-care (01) ==
LOC: RAD 12:49
PROVIDERS: PCP Family Medicine; Referring Provider Physical Medicine & Rehabilitation; Visit Provider Physical Medicine & Rehabilitation
DX: M47.816 Spondylosis without myelopathy or radiculopathy, lumbar region (principal); M47.817 Spondylosis without myelopathy or radiculopathy, lumbosacral region; M51.36 Other intervertebral disc degeneration, lumbar region; M51.37 Other intervertebral disc degeneration, lumbosacral region; M54.5 Low back pain
CPT/HCPCS: 64493; 64494; 99152; J0702; J2250; J3010

== ENCOUNTER → 2021-06-24 11:31 | Outpatient (CLI) | payer OTHER, SELFPAY ==
[2021-06-24 14:01] LABS: COVID19 -Nasal RAPID Negative (Negative)
== END ==
PROVIDERS: PCP Family Medicine; Referring Provider Physical Medicine & Rehabilitation; Visit Provider Physical Medicine & Rehabilitation
DX: Z20.822 Contact with and (suspected) exposure to COVID-19 (principal)
CPT/HCPCS: 87635; C9803

== ENCOUNTER 2021-06-25 15:56 | Outpatient (CLI) | payer OTHER, SELFPAY ==
[2021-06-25] VITALS (9 sets, daily range): BP systolic 114–176; BP diastolic 58–94; PULSE 78–93; RESP 17–31; TEMP 36.2; O2SAT 94–97
--- NOTE | 2021-06-25 15:58 | DI.RAD.S_ITS ---
PROCEDURE: PAIN L/SI FACET INJ/BLK 1STL INDICATIONS: SPONDYLOSIS COMPARISON: [facility], , PAIN L/SI FACET INJ/BLK 1STL, 02/12/2021, 14:04. FINDINGS: Fluoroscopic spot filming was performed to verify placement of spinal needles on the left at L4, L5, and S1, as labeled on the films. Appropriate location of the needle tips was confirmed by injection of iodinated contrast. IMPRESSION: Intraprocedural examination within normal limits. Dictated by: Richar Maxwell M.D. on 06/25/2021 at 16:33 Approved by: Richar Maxwell M.D. on 06/25/2021 at 16:34
[2021-06-25] MEDS: fentaNYL 100 MCG/2 ML INJ 50 MCG IV (16:50)
[2021-06-25] MEDS: BUPIVACAINE 0.5% (PF) VIAL 5 ML INJ (16:52)
[2021-06-25] MEDS: IOPAMIDOL 15 ML VIAL 3 ML INJ (16:52)
[2021-06-25] MEDS: LIDOCAINE 1% 20 ML 10 ML INJ (16:53)
[2021-06-25] MEDS: MIDAZOLAM 5 MG/5 ML VIAL IV (16:54)
--- NOTE | 2021-06-25 17:07 | PM.PROC.IR.1 ---
Date/Time/Diagnoses Date of procedure: 06/25/21 Time of procedure: 17:07 Pre-procedure diagnosis: 1. FACET ARTHROPATHY Post-procedure diagnosis: same Procedure Notes Procedure: 1. Left L4, L5 and S1 MB BLOCKS Indications: Saba is referred by Dr. Arreguin for treatment of Left Axial LBP. Physician: Eamon Cheney Total Fluoroscopy time (seconds): 6 Total sedation minutes: 9 Complications: none Procedure in detail & Post-procedure care: DESCRIPTION OF PROCEDURE Fluoroscopically guided, contrast-controlled left L4, L5 and S1 medial branch blocks with 0.5cc of 0.5% Marcaine. Following review of allergy and review of potential side effects and complications, including, but not necessarily limited to, infection, allergic reaction, local tissue breakdown, nerve injury, paralysis, stroke and possible , the patient indicated that the patient understood and agreed to proceed. An informed consent document was signed by the patient, witnessed by a nurse, and placed in the patient's chart. After review of previous anaesthesic history and IV conscious sedation the patient was deemed safe to proceed with today?s procedure with IV conscious sedation as ASA class II designation. Safety time-out was performed to confirm patient ID, procedure to be performed and site of procedure. IV sedation was accomplished with a combination of 5mg of Versed and 50mcg of Fentanyl was administered by the RN after DO order, titrated to patient comfort during the course of the procedure while the patient remained responsive to all verbal commands. In the prone position, following sterile prep and drape of the lumbar region, the left L4, L5 and S1 anatomical location of the medial branch of the dorsal ramus was identified fluoroscopically. Subsequently an anesthetic skin wheal using 1% lidocaine solution was initiated at each of the anatomical spots. Subsequently then a 22-gauge 3.5-inch spinal needle was atraumatically introduced and advanced under fluoroscopic guidance at each of the corresponding sites at the left L4, L5 and S1 MB. After negative aspiration, 0.2cc of Isovue 200 was injected, confirming placement without vascular or intrathecal uptake. Subsequently then 0.5cc of 0.5% Marcaine solution was injected at each of the corresponding sites at the left L4, L5 and S1 medial branch locations. The patient tolerated the procedure well without signs or symptoms of complications. The patient tolerated the procedure well without signs or symptoms of complications prior to transfer to the recovery area continued monitoring without incident. Post-procedure, the patient was monitored initiating provocative activities to measure the amount of relief from block of the facetogenic pain. The patient reported a VAS of 7 prior to the procedure and a post-procedure VAS of 1. It has been a pleasure to assist in the diagnostic and therapeutic care of your patient. POST OP INSTRUCTIONS The patient was provided with a Pain Log to complete over the next several hours and subsequent days prior to the patient's follow up with the ordering physician. If the patient has agency sales management assistant relief to the solution applied, then they may be a candidate for medial branch rhizotomy. The patient is aware, was provided, once again, with a Pain Log and will follow up with the referring physician for review and clinical correlation.
== END 2021-06-25 17:28 | disposition home or self-care (01) ==
PROVIDERS: PCP Family Medicine; Referring Provider Physical Medicine & Rehabilitation; Visit Provider Physical Medicine & Rehabilitation
DX: M47.816 Spondylosis without myelopathy or radiculopathy, lumbar region (principal); M47.817 Spondylosis without myelopathy or radiculopathy, lumbosacral region
CPT/HCPCS: 64493; 64494; J2250; J3010

== ENCOUNTER → 2021-09-28 12:43 | Outpatient (CLI) | payer OTHER, SELFPAY ==
--- NOTE | 2021-09-28 13:00 | DI.MRI.S_ITS ---
PROCEDURE: MR LUMBAR SPINE WO CON INDICATIONS: Chronic progressive low back pain TECHNIQUE: Noncontrast sagittal T1 spin echo and T2 fast echo, sagittal STIR, and T2 fast spin echo through the lumbar spine. In cases with scoliosis, additional coronal T2 fast spin echo may be performed. COMPARISON: [facility], CR, XR LUMBAR SPINE 2-3V, 08/27/2020, 12:05. FINDINGS: Image quality: Excellent. Alignment and Curvature: There is normal bony alignment. Bone Marrow: Marrow is of normal overall signal. No acute vertebral body compression fractures. Spinal Cord: Conus medullaris terminates at the L1 level. Visualized cord demonstrates normal signal and size. Paraspinous Soft Tissues: No paravertebral masses. T12-L1: Normal appearance. L1-L2: Normal appearance. L2-L3: Normal appearance. L3-L4: Disc space narrowing and circumferential disc bulge combines with dorsal epidural fat result in moderate central stenosis. No foraminal stenosis. L4-L5: Disc space narrowing present. Focal left subarticular broad-based disc protrusion fills the left lateral recess and combines with dorsal epidural fat result in moderate central stenosis. No foraminal stenosis. L5-S1: Disc space narrowing and broad-based disc bulge present with mild central stenosis. No foraminal stenosis. IMPRESSION: Left subarticular broad-based disc protrusion fills the left lateral recess results in moderate central stenosis. Degenerative disc disease and dorsal epidural fat results in moderate central stenosis at L3-4 as well. Approved by: Zia Torrez M.D. on 09/28/2021 at 22:51
== END ==
PROVIDERS: PCP Family Medicine; Referring Provider Physical Medicine & Rehabilitation; Visit Provider Physical Medicine & Rehabilitation
DX: M51.26 Other intervertebral disc displacement, lumbar region (principal); M51.27 Other intervertebral disc displacement, lumbosacral region; M51.36 Other intervertebral disc degeneration, lumbar region; M48.061 Spinal stenosis, lumbar region without neurogenic claudication; M48.07 Spinal stenosis, lumbosacral region
CPT/HCPCS: 72148

== ENCOUNTER → 2021-10-08 11:12 | Outpatient (CLI) | payer OTHER, SELFPAY ==
--- NOTE | 2021-10-08 11:14 | DI.RAD.S_ITS ---
PROCEDURE: XR LUMBAR SPINE MIN 4V INDICATIONS: BACK PAIN TECHNIQUE: 5 views of the lumbar spine were acquired, including bilateral oblique views. COMPARISON: [facility], , XR LUMBAR SPINE 2-3V, 08/27/2020, 12:05. FINDINGS: Bones: 5 nonrib-bearing vertebrae are present. There is straightening of normal lumbar lordosis. Mild degenerative endplate changes at L4-5 and L5-S1 levels are seen. No vertebral body compression fractures. No suspicious bony lesions. Soft tissues: Overlying bowel gas pattern is normal. No suspicious soft tissue calcifications. Oblique images: No pars defects. IMPRESSION: Mild degenerative endplate changes at L4-5 and L5-S1 levels. No compression fracture or spondylolisthesis. No pars defects. Dictated by: Garcia Crenshaw M.D. on 10/08/2021 at 16:15 Approved by: Garcia Crenshaw M.D. on 10/08/2021 at 16:16
== END ==
PROVIDERS: PCP Family Medicine; Referring Provider Physical Medicine & Rehabilitation; Visit Provider Physical Medicine & Rehabilitation
DX: M47.816 Spondylosis without myelopathy or radiculopathy, lumbar region (principal); M51.26 Other intervertebral disc displacement, lumbar region; M47.817 Spondylosis without myelopathy or radiculopathy, lumbosacral region
CPT/HCPCS: 72110

== ENCOUNTER → 2021-12-30 08:11 | Outpatient (CLI) | payer OTHER, SELFPAY ==
[2021-12-30 08:46] LABS: COVID19 -Nasal RAPID Negative (Negative)
== END ==
PROVIDERS: PCP Family Medicine; Visit Provider Physical Medicine & Rehabilitation
DX: Z20.822 Contact with and (suspected) exposure to COVID-19 (principal)
CPT/HCPCS: 87635; C9803

== ENCOUNTER 2021-12-31 12:42 | Outpatient (CLI) | payer OTHER, SELFPAY ==
[2021-12-31] VITALS (8 sets, daily range): BP systolic 123–153; BP diastolic 68–88; PULSE 78–93; RESP 12–22; TEMP 36.7; O2SAT 96–98
--- NOTE | 2021-12-31 12:44 | DI.RAD.S_ITS ---
PROCEDURE: PAIN L/S TRANSFORAMINAL INJECT INDICATIONS: SPONDYLOSIS COMPARISON: [facility], XA, PAIN L/SI FACET INJ/BLK 1STL, 06/25/2021, 17:53. [facility], XA, PAIN L/SI FACET INJ/BLK 1STL, 02/12/2021, 14:04. [facility], XA, PAIN L/S TRANSFORAMINAL INJECT, 11/08/2020, 8:28. FINDINGS: Fluoroscopic spot filming was performed to verify placement of spinal needles at the left L4-5 level(s), as labeled on the films. Appropriate location(s) of the needle tip(s) was confirmed by injection of iodinated contrast. IMPRESSION: Fluoroscopic guidance Approved by: Zia Torrez M.D. on 12/31/2021 at 17:00
[2021-12-31] MEDS: MIDAZOLAM 2 MG/2 ML VIAL IV (13:44)
[2021-12-31] MEDS: BUPIVACAINE 0.25% (PF) VIAL 2 ML INJ (13:49)
[2021-12-31] MEDS: BETAMETHASONE 30 MG/5 ML MDV 6 MG INJ (13:49)
[2021-12-31] MEDS: IOPAMIDOL 15 ML VIAL 3 ML INJ (13:49)
[2021-12-31] MEDS: DEXAMETHASONE 10 MG/ML VIAL 20 MG INJ (13:50)
--- NOTE | 2021-12-31 13:58 | P.PCN_ITS ---
Date/Time/Diagnoses Date of procedure: 12/31/21 Time of procedure: 13:58 Pre-procedure diagnosis: 1. FORAMINAL STENOSIS WITH LE SYMPTOMS Post-procedure diagnosis: same Procedure Notes Procedure: 1. FLUOROSCOPICALLY GUIDED CONTRAST CONTROLLED TRANSFORAMINAL EPIDURAL STEROID INJECTION - LEFT L4/5 Indications: Saba is referred by Dr. Arreguin for treatment of Foraminal Stenosis with Left LE Symptoms Physician: Eamon Cheney Total Fluoroscopy time (seconds): 9 Total sedation minutes: 9 Complications: none Procedure in detail & Post-procedure care: FINDINGS Foraminal Nerve Root Compression secondary to disc disease and facet hypertrophy DESCRIPTION OF PROCEDURE Following review of allergy and review of potential side effects and complications, including, but not necessarily limited to, infection, allergic reaction, local tissue breakdown, stroke, temporary or permanent nerve injury, paralysis, and possible , the patient indicated that the patient understood and agreed to proceed. An informed consent document was signed by the patient, witnessed by a nurse, and placed in the patient's chart. Additionally, other treatment options including medications, modalities, and physical therapy were reviewed with the patient. After review of previous anaesthesic history and IV conscious sedation the patient was deemed safe to proceed with today?s procedure with IV conscious sedation as ASA class II designation. Safety time-out was performed to confirm patient ID, procedure to be performed and site of procedure. IV sedation was accomplished with a combination of 2mg of Versed administered by the RN after DO order, titrated to patient comfort during the course of the procedure while the patient remained responsive to all verbal commands In the prone position following sterile prep and drape of the lumbar region, the left L4/5 posterior neuroforamen was identified fluoroscopically. The skin was anesthetized via a 25-gauge 1.5-inch needle with 1% lidocaine solution. At this point, a 25-gauge 3.5-inch spinal needle was atraumatically introduced and advanced under fluoroscopic guidance through the posterior left L4/5 neuroforamen to approximately the anterior aspect of the canal. Depth was confirmed on lateral view. Following negative aspiration, injection of approximately 1.5 cc of Isovue 200 under live fluoroscopy in the AP view confirmed excellent flow along the nerve root, into the epidural space without vascular or intrathecal uptake observed Radiological data, including multiple fluoroscopic views of the lumbosacral spine, reveal a spinal needle at the left L4/5 posterior neuroforamen. Subsequent views show flow of contrast material flowing superiorly and inferiorly along the nerve root confirming epidural flow. Subsequently, a test dose of 1.5 cc of 1% lidocaine solution was administered and patient was observed for two minutes for signs or symptoms of complications, including abdominal pain, shortness of breath, bilateral upper or lower extremity weakness, nausea and vomiting, prior to steroid injection. At this point, a total of 3cc or 20mg of dexamethasone and 6mg of betamethasone was injected without incident. The procedure tolerated the procedure well without signs or symptoms of complications prior to transfer to the recovery area continued monitoring without incident. The patient was then transferred to the recovery area where they were observed for an appropriate time after the injection. The patient reported a VAS score of 7 prior to the procedure and a post- procedure VAS of 1. POST OP INSTRUCTIONS The patient was provided a Pain Log to continue to record their response to the target-specific procedure prior to follow-up visit with their referring physician. Additionally, specific post-injection care instructions and a contact number to our office were provided if concerns arise regarding possible complications associated with the procedure are suspected.
== END 2021-12-31 14:16 | disposition home or self-care (01) ==
LOC: RAD 12:43
PROVIDERS: PCP Family Medicine; Referring Provider Physical Medicine & Rehabilitation; Visit Provider Physical Medicine & Rehabilitation
DX: M48.061 Spinal stenosis, lumbar region without neurogenic claudication (principal); M51.16 Intervertebral disc disorders with radiculopathy, lumbar region
CPT/HCPCS: 64483; J0702; J1100; J2250

== ENCOUNTER → 2022-05-07 07:50 | Outpatient (CLI) | payer OTHER, SELFPAY ==
[2022-05-07 09:17] LABS: Add Manual Diff / Slide Review NO; Basophils Absolute Auto 100 /uL (0-100); Basophils Percent Auto 1.1 % (0-2); Eosinophils Absolute Auto 400 /uL (0-450); Eosinophils Percent Auto 4.9 % (2-4); Hematocrit 46.6 % (41-53); Hemoglobin 16.1 g/dL (13.5-17.5); Lymphocytes Absolute Auto 2800 /uL (1100-4500); Lymphocytes Percent Auto 31.5 % (25-40); Mean Corpuscular HGB Conc 34.6 % (30-36); Mean Corpuscular Hemoglobin 28.7 PG (26-34); Monocytes Absolute Auto 600 /uL (0-900); Monocytes Percent Auto 6.4 % (3-14); Neutrophils Absolute Auto 5000 /uL (1500-7000); Neutrophils Percent Auto 56.1 % (50-75); Platelet Count 195 X10^3/uL (150-400); Red Blood Cell Count 5.62 X10^6/uL (4.5-5.9); Red Cell Distribution Width 13.1 % (11.6-14.8)
[2022-05-07 09:26] LABS: Alanine Aminotransferase 78 IU/L (<50); Albumin 4.3 g/dL (3.5-5.0); Albumin Globulin Ratio 1.2 (1.0-2.8); Alkaline Phosphatase 73 U/L (38-126); Aspartate Aminotransferase 38 IU/L (17-59); BUN Creatinine Ratio 17.1 (6-22); Bilirubin Total 0.4 mg/dL (0.2-1.3); Blood Urea Nitrogen 12 mg/dL (9-20); Calcium 9.4 mg/dL (8.4-10.2); Carbon Dioxide 27 mmol/L (22-32); Chloride 99 mmol/L (98-107); Cholesterol 210 mg/dL (140-199); Estimated Glomerular Filt Rate > 60 mL/min (>60); Globulin 3.6 g/dL (1.7-4.1); Glucose 159 mg/dL (70-100); HDL Cholesterol 32 mg/dL (40-60); HEMOLYSIS < 15 (0-50); LDL Cholesterol Calculated 110 mg/dL (<100); Potassium 4.3 mmol/L (3.4-5.1); Sodium 139 mmol/L (137-145); Total Protein 7.9 g/dL (6.3-8.2); Triglycerides 339 mg/dL (35-150)
[2022-05-07 09:57] LABS: Creatinine Urine Random 77.2 mg/dL
[2022-05-07 09:57] LABS: TSH w/ Reflex to FT4 1.15 uIU/mL (0.47-4.68)
[2022-05-07 10:03] LABS: Microalbumi Creatinin Ratio Ur 10.3 ug/mg CR (<30); Microalbumin Urine Random 0.8 mg/dL (0-1.6)
[2022-05-07 10:28] LABS: Hemoglobin A1C% w Est Avg Glu 12.9 % (4.0-6.0)
== END ==
PROVIDERS: PCP Family Medicine; Referring Provider Physician Assistant; Visit Provider Physician Assistant
DX: E11.65 Type 2 diabetes mellitus with hyperglycemia (principal); E11.9 Type 2 diabetes mellitus without complications; E78.5 Hyperlipidemia, unspecified; Z13.220 Encounter for screening for lipoid disorders; Z79.4 Long term (current) use of insulin
CPT/HCPCS: 36415; 80053; 80061; 82043; 82570; 83036; 84443; 85025

== ENCOUNTER → 2022-08-19 08:33 | Outpatient (CLI) | payer OTHER, SELFPAY ==
[2022-08-19 09:28] LABS: Hemoglobin A1C% w Est Avg Glu 9.9 % (4.0-6.0)
== END ==
PROVIDERS: PCP Family Medicine; Referring Provider Physician Assistant; Visit Provider Physician Assistant
DX: E11.65 Type 2 diabetes mellitus with hyperglycemia (principal); E11.9 Type 2 diabetes mellitus without complications; Z79.4 Long term (current) use of insulin
CPT/HCPCS: 36415; 83036

== ENCOUNTER 2023-07-10 21:31 | Emergency (ER) | payer SELFPAY ==
[2023-07-10 21:39] VITALS: BP 156/92; PULSE 126; RESP 20; TEMP 37.4; O2SAT 97; BMI 36.6
[2023-07-10 22:27] VITALS: BP 147/76; PULSE 114; O2SAT 97
--- NOTE | 2023-07-10 22:29 | ED.SKABFB ---
HPI - Skin/Abscess/Foreign Bdy General Chief complaint: Skin/Abscess/Foreign Body Stated complaint: clogged pore duct on groin Time Seen by Provider: 07/10/23 21:33 Source: patient Mode of arrival: Ambulatory Limitations: no limitations History of Present Illness HPI narrative: 28-year-old male with history of insulin-dependent diabetes presents for swelling in his left groin. Several days ago he states that he squeezed a pimple on his inner groin but it continued to get worse and he is concerned it may be infected. Related Data Previous Rx's Medication Instructions Recorded glucose meter,test strips,lancets #1 ea 01/25/20 lancets (Ultra touch 2 meter) #100 ea 04/17/20 atorvastatin 20 mg tablet 20 mg PO BEDTIME #90 tabs 08/12/22 Free Style Wendy or Dexcom 1 ea transdermal DIRECTED #4 ea 08/19/22 clobetasol-emollient 0.05 % 1 applic topical BID 1 week #60 08/19/22 topical cream grams pen needle, diabetic 31 gauge x #180 ea 09/22/22/16 (Easy Comfort Pen [place]) dapagliflozin propanediol 5 mg 5 mg PO DAILY #90 tabs 04/01/23 tablet insulin glargine-yfgn 100 unit/mL See Rx Instructions SUBCUT BID 90 04/01/23 (3 mL) subcutaneous pen days #90 mL lisinopril 20 mg tablet 20 mg PO DAILY #90 tabs 04/01/23 metformin 1,000 mg tablet,extended 2,000 mg (2 x 1,000 mg) PO QPM 04/01/23 release 24hr #180 tabs doxycycline hyclate 100 mg capsule 100 mg PO BID #14 caps 07/10/23 Allergies Allergy/AdvReac Type Severity Reaction Status Date / Time cat dander [CAT DANDER] Allergy Unknown Verified 04/01/23 14:22 Penicillins AdvReac Intermediate VOMITING Verified 04/01/23 14:22 Review of Systems Review of Systems Narrative: otherwise negative Patient History Medical History Facet arthropathy, lumbar Herniated nucleus pulposus, L4-5 Long-term insulin use in type 2 diabetes Snoring (~2014) Obstructive sleep apnea (~06/17/19) Nocturnal hypoxemia (06/17/19) Fatigue (~2016) Morbid obesity with body mass index (BMI) of 40.0 to 49.9 Diabetes mellitus Diabetes mellitus (10/24/14) Surgical History Anesthesia History of third molar tooth extraction (~1999) Family History Father Diabetes mellitus Grandmother Schizophrenia Bipolar 1 disorder Mother Diabetes mellitus Hypertension Obesity Social History marital status: unmarried,single Smoking Status: Current every day smoker alcohol intake: current substance use type: marijuana eating out: 1-3 times/week Type(s) of exercise: none Smoking Status: Current every day smoker alcohol intake frequency: 0-2 drinks per day Substance Use Type: marijuana Exam Initial Vital Signs Initial Vital Signs: Vital Signs Temperature 99.3 F 07/10/23 21:39 Pulse Rate 126 H 07/10/23 21:39 Respiratory Rate 20 07/10/23 21:39 Blood Pressure 156/92 H 07/10/23 21:39 Pulse Oximetry 97 07/10/23 21:39 Oxygen Delivery Method Room Air 07/10/23 21:39 Const: Awake, alert, no acute distress, nontoxic appearing, obese : Code Number Stamper present, 2x3cm area of induration between scrotum and groin crease Skin: Warm, Dry, intact, no rashes Neuro: AO x3, CN II-XII grossly intact, moves all extremities Procedures Abscess I/D I&D #1: Site: scrotum Side (if applicable): left Sedation/analgesia: other (ativan, morphine) Local Anesthetic: lidocaine 1% and with epi Amount of anesthesia used (mL): 5 Technique: incised with #11 blade Irrigation: Yes Packing used?: iodoform Complications: other (none) Course Orders Ordered: Discontinued Medications Lidocaine/Epinephrine (Lidocaine 1% W/Epi) 10 ml SUBCUT NOW ONE Stop: 07/10/23 22:29 Last Admin: 07/10/23 22:46 Dose: 10 ml Documented By: BB Lorazepam (Lorazepam 2 Mg/Ml Inj) 2 mg IV NOW ONE Stop: 07/10/23 22:27 Last Admin: 07/10/23 22:48 Dose: 2 mg Documented By: HAWA Morphine Sulfate (Morphine 4 Mg/Ml Inj) 4 mg IV NOW ONE Stop: 07/10/23 22:27 Last Admin: 07/10/23 22:47 Dose: 4 mg Documented By: HAWA Vital Signs Vital signs: Vital Signs - 8 hr 07/10/23 21:39 07/10/23 22:27 07/10/23 22:27 Temperature 99.3 F Pulse Rate 126 H 114 H Respiratory Rate 20 Blood Pressure 156/92 H 147/76 H Pulse Oximetry 97 97 Oxygen Delivery Method Room Air Room Air 07/10/23 22:30 07/10/23 22:32 07/10/23 22:32 Temperature Pulse Rate 108 H 108 H Respiratory Rate Blood Pressure 145/72 H Pulse Oximetry 97 98 Oxygen Delivery Method Room Air 07/10/23 22:50 07/10/23 22:50 07/10/23 23:00 Temperature Pulse Rate 101 H Respiratory Rate Blood Pressure 145/78 H 130/72 Pulse Oximetry 98 Oxygen Delivery Method 07/10/23 23:00 Temperature Pulse Rate 113 H Respiratory Rate Blood Pressure Pulse Oximetry 96 Oxygen Delivery Method Room Air MDM - Skin/Abscess/Foreign Bdy Differential Diagnosis Differential diagnosis: Likely abscess of skin or subcutaneous tissue, dermatophytosis and herpes zoster MDM Narrative Medical decision making narrative: Abscess of inner thigh. Incised and drained per procedure note. Since patient is diabetic plan to treat with doxycycline. Wound care instructions discussed with patient at bedside. Antibiotics sent to pharmacy of choice. Discharge Plan Departure Patient Disposition: Home Clinical Impression: Abscess of groin, left Instructions: DI for Skin Abscess Prescriptions: New doxycycline hyclate 100 mg capsule 100 mg PO BID Qty: 14 0RF No Action Free Style Wendy or Dexcom 1 ea transdermal DIRECTED Qty: 4 12RF clobetasol-emollient 0.05 % cream 1 applic topical BID 7 Days Qty: 60 1RF Rx Instructions: Apply to affected area once or twice daily lisinopril 20 mg tablet 20 mg PO DAILY Qty: 90 3RF metformin 1,000 mg tablet extended release 24 hr 2,000 mg PO QPM Qty: 180 3RF dapagliflozin propanediol 5 mg tablet 5 mg PO DAILY Qty: 90 3RF insulin glargine-yfgn 100 unit/mL (3 mL) insulin pen See Rx Instructions SUBCUT BID 90 Days Qty: 90 3RF Rx Instructions: 90 U in the am and 90 U in the pm SUBCUT twice a day (DME) glucose meter,test strips,lancets Qty: 1 0RF Rx Instructions: As directed once daily for blood glucose monitoring (DME) lancets (Ultra touch 2 meter) Qty: 100 11RF Rx Instructions: As directed twice daily for blood sugar testing atorvastatin 20 mg tablet 20 mg PO BEDTIME Qty: 90 3RF (DME) pen needle, diabetic [Easy Comfort Pen [place]] 31 gauge x 5/16 needle See Rx Instructions .Route Qty: 180 3RF Rx Instructions: As directed twice daily for insulin injection Referrals: Vel Arreguin MD [Primary Care Provider] - Stand Alone Forms: Patient Portal/API
[2023-07-10 22:30] VITALS: PULSE 108; O2SAT 97
[2023-07-10 22:32] VITALS: BP 145/72; PULSE 108; O2SAT 98
[2023-07-10] MEDS: LIDOCAINE 1% W/EPI 10 ML SUBCUT (22:46)
[2023-07-10] MEDS: MORPHINE 4 MG/ML INJ IV (22:47)
[2023-07-10] MEDS: LORazepam 2 MG/ML INJ IV (22:48)
[2023-07-10 22:50] VITALS: BP 145/78; PULSE 101; O2SAT 98
[2023-07-10 23:00] VITALS: BP 130/72; PULSE 113; O2SAT 96
== END 2023-07-10 23:36 | disposition home or self-care (01) ==
PROVIDERS: Emergency Provider Emergency Medicine; PCP Family Medicine
DX: L02.214 Cutaneous abscess of groin (principal)
CPT/HCPCS: 10060; 36415; 96374; 96375; 99284; J2060; J2270

== ENCOUNTER → 2023-07-23 08:28 | Outpatient (CLI) | payer BC, SELFPAY ==
[2023-07-23 09:55] LABS: Add Manual Diff / Slide Review NO; Basophils Absolute Auto 100 /uL (0-100); Basophils Percent Auto 0.6 % (0-2); Eosinophils Absolute Auto 100 /uL (0-450); Eosinophils Percent Auto 1.5 % (2-4); Hematocrit 48.4 % (41-53); Hemoglobin 16.6 g/dL (13.5-17.5); Lymphocytes Absolute Auto 2000 /uL (1100-4500); Lymphocytes Percent Auto 24.1 % (25-40); Mean Corpuscular HGB Conc 34.4 % (30-36); Mean Corpuscular Hemoglobin 29.3 PG (26-34); Mean Corpuscular Volume 85.3 fL (80-100); Monocytes Absolute Auto 500 /uL (0-900); Monocytes Percent Auto 6.3 % (3-14); Neutrophils Absolute Auto 5600 /uL (1500-7000); Neutrophils Percent Auto 67.5 % (50-75); Platelet Count 204 X10^3/uL (150-400); Red Blood Cell Count 5.67 X10^6/uL (4.5-5.9); Red Cell Distribution Width 13.3 % (11.6-14.8); White Blood Cell Count 8.3 X10^3/uL (4.5-11.0)
[2023-07-23 10:09] LABS: Hemoglobin A1C% w Est Avg Glu > 14.0 % (4.0-6.0)
[2023-07-23 10:22] LABS: Alanine Aminotransferase 37 IU/L (<50); Albumin 4.4 g/dL (3.5-5.0); Albumin Globulin Ratio 1.3 (1.0-2.8); Alkaline Phosphatase 71 U/L (38-126); Aspartate Aminotransferase 32 IU/L (17-59); BUN Creatinine Ratio 23.2 (6-22); Bilirubin Total 0.7 mg/dL (0.2-1.3); Blood Urea Nitrogen 13 mg/dL (9-20); Calcium 9.4 mg/dL (8.4-10.2); Carbon Dioxide 23 mmol/L (22-32); Chloride 99 mmol/L (98-107); Cholesterol 253 mg/dL (140-199); Estimated Glomerular Filt Rate > 60 mL/min (>60); Globulin 3.5 g/dL (1.7-4.1); Glucose 315 mg/dL (70-100); HDL Cholesterol 39 mg/dL (40-60); HEMOLYSIS < 15 (0-50); LDL Cholesterol Calculated 173 mg/dL (<100); Sodium 135 mmol/L (137-145); Total Protein 7.9 g/dL (6.3-8.2); Triglycerides 203 mg/dL (35-150)
[2023-07-23 10:47] LABS: TSH w/ Reflex to FT4 1.23 uIU/mL (0.47-4.68)
[2023-07-23 10:52] LABS: Creatinine Urine Random 282.2 mg/dL
[2023-07-23 11:07] LABS: Vitamin B12 908 pg/mL (239-931)
[2023-07-23 11:42] LABS: Microalbumi Creatinin Ratio Ur 105.2 ug/mg CR (<30); Microalbumin Urine Random 29.7 mg/dL (0-1.6)
== END ==
PROVIDERS: PCP Family Medicine; Referring Provider Physician Assistant; Visit Provider Physician Assistant
DX: E11.65 Type 2 diabetes mellitus with hyperglycemia (principal); G62.9 Polyneuropathy, unspecified; E11.9 Type 2 diabetes mellitus without complications; E66.01 Morbid (severe) obesity due to excess calories; E78.2 Mixed hyperlipidemia; R73.09 Other abnormal glucose; Z79.4 Long term (current) use of insulin
CPT/HCPCS: 36415; 80053; 80061; 82043; 82570; 82607; 83036; 84443; 85025

== ENCOUNTER → 2024-02-05 18:18 | Outpatient (CLI) | payer BC, SELFPAY ==
[2024-02-05 22:02] LABS: Urine N gonorrhoeae NOT DETECTED
[2024-02-05 22:03] LABS: Urine Chlamydia NOT DETECTED
== END ==
PROVIDERS: PCP Family Medicine; Visit Provider Nurse Practitioner Family
DX: R30.0 Dysuria (principal)
CPT/HCPCS: 87086; 87491; 87591

== ENCOUNTER → 2024-02-06 09:12 | Outpatient (CLI) | payer BC, SELFPAY ==
[2024-02-06 20:05] LABS: HIV 1 & 2 Ab/Ag 4th Gen Combo NEGATIVE (NEGATIVE); Hep C Virus Ab w/Reflex Quant NEGATIVE s/c (NEGATIVE); Hepatitis B Surface Antigen NEGATIVE s/c (NEGATIVE)
[2024-02-07 10:09] LABS: HSV 2 IGG AB < 0.91 index (0.00-0.90); HSV1IGG < 0.91 index (0.00-0.90)
[2024-02-09 06:11] LABS: RPR Screen Non Reactive (Non Reactive)
== END ==
PROVIDERS: PCP Family Medicine; Referring Provider Nurse Practitioner Family; Visit Provider Nurse Practitioner Family
DX: R30.0 Dysuria (principal)
CPT/HCPCS: 36415; 86592; 86695; 86696; 86803; 87340; 87389

== ENCOUNTER 2024-08-27 07:17 | Emergency (ER) | payer SELFPAY ==
[2024-08-27 07:28] VITALS: BP 133/82; PULSE 120; RESP 20; TEMP 36.4; O2SAT 99; BMI 32.1
--- NOTE | 2024-08-27 07:41 | ED.BACK ---
HPI - Back Pain/Injury General Chief Complaint: Back Pain/Injury Stated Complaint: Lower back pain Time Seen by Provider: 08/27/24 07:22 Source: patient History of Present Illness HPI Narrative: 29-year-old gentleman with a history of diabetes, schizophrenia,, hyperlipidemia, prior lumbar degenerative disease with known facet arthritis was lifting heavy boxes 3 days ago felt that there is an increased pull in his lower back on over the last 72 hours has been increasingly sore. He has some minor radiculopathy but no overt weakness. The pain is enough that he is having trouble bearing weight or even standing for more than a minute. He is used Tylenol because he has no other medications available for pain relief at home. He comes in for further evaluation. He does not have a history of IV drug use, no recent spinal manipulation or injections very low risk for epidural abscess or diskitis, no fevers, abdominal pain no paresthesias no change to bowel or bladder habit no perineal numbness. Related Data Home Medications Medication Instructions Recorded Confirmed blood-glucose meter (FreeStyle #1 ea 02/05/24 02/05/24 Lite Meter kit) dapagliflozin propanediol 5 mg 5 mg PO DAILY 02/05/24 02/05/24 tablet (Farxiga) lancets 28 gauge (FreeStyle #100 ea 02/05/24 02/05/24 Lancets) Previous Rx's Medication Instructions Recorded lancets (Ultra touch 2 meter) #100 ea 04/17/20 Free Style Wendy or Dexcom 1 ea transdermal DIRECTED #4 ea 08/19/22 atorvastatin 20 mg tablet 20 mg PO BEDTIME #90 tabs 08/10/23 lisinopril 20 mg tablet 20 mg PO DAILY #90 tabs 08/10/23 metformin 1,000 mg tablet 1,000 mg PO BID #180 tabs 08/10/23 sildenafil (pulm.hypertension) 20 60 mg (3 x 20 mg) PO DAILY #30 tabs 10/12/23 mg tablet (Revatio) glucose meter,test strips,lancets #1 ea 10/14/23 pen needle, diabetic 31 gauge x #180 ea 10/14/2310/28 (Easy Comfort Pen [place]) insulin glargine 100 unit/mL (3 90 unit (0.9 mL) SUBCUT QPM 3 08/26/24 mL) subcutaneous pen (Lantus months #81 mL Solostar U-100 Insulin) hydroxyzine pamoate 25 mg capsule 25 mg PO QID PRN muscle spasm #20 08/27/24 caps ibuprofen 400 mg tablet (IBU) 400 mg PO Q6H PRN pain #30 tabs 08/27/24 oxycodone-acetaminophen 5 mg-325 1 tab PO Q6H PRN pain #10 tabs 08/27/24 mg tablet polyethylene glycol 3350 17 17 g PO DAILY #238 grams 08/27/24 gram/dose oral powder (Miralax) Allergies Allergy/AdvReac Type Severity Reaction Status Date / Time cat dander [CAT DANDER] Allergy Unknown Verified 02/05/24 18:21 Penicillins AdvReac Intermediate VOMITING Verified 02/05/24 18:21 Review of Systems Review of Systems Narrative: Pertinent positive and negative findings as per HPI Patient History Medical History (Updated 08/27/24 @ 09:00 by Vika Jennings MD) Facet arthropathy, lumbar Herniated nucleus pulposus, L4-5 Long-term insulin use in type 2 diabetes Morbid obesity with body mass index (BMI) of 40.0 to 49.9 Diabetes mellitus Diabetes mellitus (10/24/14) Surgical History Anesthesia History of third molar tooth extraction (~1999) Family History Father Diabetes mellitus Grandmother Schizophrenia Bipolar 1 disorder Mother Diabetes mellitus Hypertension Obesity Social History marital status: unmarried,single Smoking Status: Current every day smoker alcohol intake: current substance use type: marijuana eating out: 1-3 times/week Type(s) of exercise: none Smoking Status: Current every day smoker alcohol intake frequency: 0-2 drinks per day Exam Initial Vital Signs Initial Vital Signs: Vital Signs Temperature 97.5 F L 08/27/24 07:28 Pulse Rate 120 H 08/27/24 07:28 Respiratory Rate 20 08/27/24 07:28 Blood Pressure 133/82 08/27/24 07:28 Pulse Oximetry 99 08/27/24 07:28 Oxygen Delivery Method Room Air 08/27/24 07:28 General: Alert in significant pain Respiratory: Able to speak in full sentences, no obvious respiratory distress Abdomen is soft Spine: No tenderness along the midline lower thoracic or lumbar spine. Some minor paraspinous tenderness on the right side. Tenderness into the right buttock. Skin: No obvious rashes, warm and dry Neurologic: Minor decreased sensation central portion of the right calf compared to the left. Reflexes are intact bilaterally, good capillary refill to both lower extremities Psych: appropriate insight and affect, cooperative Course Orders Ordered: ED Orders 08/27/24 07:33 Consult to PRINTING EQUIPMENT MECHANIC APPRENTICE - Analyst Programmer Stat Discontinued Medications Hydroxyzine HCl (Hydroxyzine Hcl 25 Mg Tablet) 25 mg PO NOW ONE Stop: 08/27/24 07:39 Last Admin: 08/27/24 07:53 Dose: 25 mg Documented By: RB Ketorolac Tromethamine (Ketorolac 30 Mg/Ml Vial) 30 mg IM NOW ONE Stop: 08/27/24 07:39 Last Admin: 08/27/24 07:53 Dose: 30 mg Documented By: POLO Oxycodone/Acetaminophen (Oxycodone/Acetaminophen 5/325 Tablet) 2 tab PO NOW ONE Stop: 08/27/24 07:39 Last Admin: 08/27/24 07:54 Dose: 2 tab Documented By: RB Vital Signs Vital signs: Vital Signs - 8 hr 08/27/24 07:28 Temperature 97.5 F L Pulse Rate 120 H Respiratory Rate 20 Blood Pressure 133/82 Pulse Oximetry 99 Oxygen Delivery Method Room Air MDM - Back Pain/Injury Lab Data Labs: Urine Dip Bedside Urine Glucose 100 mg/dl Bedside Urine Bilirubin - Negative Bedside Urine Ketone - Negative Urine Specific [place] 1.025 Bedside Urine Occult Blood - Negative Bedside Urine pH 6.0 Bedside Urine Protein +/- 15 Bedside Urine Urobilinogen +/- 1mg Bedside Urine Nitrite - Negative Bedside Urine Leukocytes - Negative Esterase MDM Narrative Medical decision making narrative: CC: Acute right-sided back pain with radicular findings Complicating co-morbidities: Diabetes, hypertension hyperlipidemia, schizophrenia, prior back pain with intervention Data collected from: patient, partner Social determinants of health that may influence the patients condition: Patient reported some housing and food instability, we will ask our social work administrator to contact him Medical records reviewed: Primary care notes are reviewed Differential considered: Acute back strain, acute disc injury, without significant trauma I do not suspect fracture, slight decreased sensation mid posterior calf on the right compared to the left. Reflexes are otherwise unremarkable. Full sensation to the perineum. He is able to move his legs with no significant weakness No red flags for epidural abscess or diskitis Exam documented above, pertinent findings include: Patient has significant pain but is able to move the right leg. No obvious weakness, reflexes are appropriate Imaging studies independently reviewed: Imaging studies are not indicated at this time Treatments: IM Toradol, 2 Percocet, hydroxyzine for muscle spasm Discussion: 29-year-old gentleman with acute low back strain and right radicular symptoms. Minor paresthesia in right posterior calf, no weakness, no change to bowel or bladder function. Significant improvement with Toradol, Percocet and Vistaril. No red flags for acute back pain and imaging is not indicated. We discussed acute low back pain, recommended treatments, he will be given prescriptions for ibuprofen, Percocet, Vistaril, MiraLax. Recommended follow up with his primary physician, he may benefit from physical therapy. There was no indication of neurologic threatening event or reason for additional lab work, imaging or hospitalization. He is safe for discharge Discharge Plan Departure Patient Disposition: Home Clinical Impression: Acute lumbar radiculopathy Low back strain Qualifiers: Encounter type: initial encounter Qualified Code(s): S39.012A - Strain of muscle, fascia and tendon of lower back, initial encounter Instructions: DI for Back Strain or Sprain Activity Restrictions/Additional Instructions: Thank you for coming in I think you pulled and irritated your low back muscles with the physical work you are doing 3 days ago. The fact that it has progressively worsened over these last 3 days supports that idea. I am not seeing any indication of ruptured disc or something that would require imaging today. You were given a shot of Toradol which is in the same family as ibuprofen. Percocet which is a narcotic and Vistaril which helps with muscle spasm and this combination worked well for you. Using 400 mg of ibuprofen (2 qilu-wnn-wyvbiam pills) and 1 Tylenol every 6 hours can be very helpful in controlling pain. For severe pain you can use 400 mg of ibuprofen and 1 Percocet. If you are having muscle spasm or increased pain radiating down the back of your leg, you can try adding the Vistaril to help with the muscle spasm Narcotics are going to cause constipation, I have given you a prescription for MiraLax. Please use a full dose of MiraLax any day that you end up using the narcotic pills Do make sure that you are up and mobile, ice and heat can help relieve pain and spasm. Do follow up with your primary care physician. They may recommend referral to physical therapy If you find that you are getting worse or develop any new symptoms, please feel free to return to the emergency department for further evaluation. Prescriptions: New ibuprofen [IBU] 400 mg tablet 400 mg PO Q6H PRN (Reason: pain) Qty: 30 0RF oxycodone-acetaminophen 5-325 mg tablet 1 tab PO Q6H PRN (Reason: pain) Qty: 10 0RF hydroxyzine pamoate 25 mg capsule 25 mg PO QID PRN (Reason: muscle spasm) Qty: 20 0RF polyethylene glycol 3350 [Miralax] 17 gram/dose powder 17 g PO DAILY Qty: 238 0RF No Action Free Style Wendy or Dexcom 1 ea transdermal DIRECTED Qty: 4 12RF (DME) blood-glucose meter [FreeStyle Lite Meter] Kit See Rx Instructions .ROUTE .MEDSUPPLY Qty: 1 Patient Comments: [NO ORIGINAL SIG] Rx Instructions: As directed (DME) lancets [FreeStyle Lancets] 28 gauge misc See Rx Instructions .ROUTE 3XD Qty: 100 Rx Instructions: As directed dapagliflozin propanediol [Farxiga] 5 mg tablet 5 mg PO DAILY (DME) lancets (Ultra touch 2 meter) Qty: 100 11RF Rx Instructions: As directed twice daily for blood sugar testing lisinopril 20 mg tablet 20 mg PO DAILY Qty: 90 3RF atorvastatin 20 mg tablet 20 mg PO BEDTIME Qty: 90 3RF sildenafil (pulm.hypertension) [Revatio] 20 mg tablet 60 mg PO DAILY Qty: 30 5RF Rx Instructions: take up to three tabs a day as needed (DME) pen needle, diabetic [Easy Comfort Pen [place]] 31 gauge x 5/16 needle See Rx Instructions .Route Qty: 180 3RF Rx Instructions: As directed twice daily for insulin injection (DME) glucose meter,test strips,lancets Qty: 1 0RF Rx Instructions: As directed once daily for blood glucose monitoring insulin glargine [Lantus Solostar U-100 Insulin] 100 unit/mL (3 mL) insulin pen 90 unit SUBCUT QPM 90 Days Qty: 81 3RF metformin 1,000 mg tablet 1,000 mg PO BID Qty: 180 1RF Referrals: Vel Arreguin MD [Primary Care Provider] - Stand Alone Forms: Patient Portal/API/Survey
[2024-08-27] MEDS: hydrOXYzine HCL 25 MG TABLET PO (07:53)
[2024-08-27] MEDS: KETOROLAC 30 MG/ML VIAL IM (07:53)
[2024-08-27] MEDS: OXYCODONE/ACETAMINOPHEN 5/325 TABLET 2 TAB PO (07:54)
[2024-08-27 08:33] VITALS: BP 138/83; PULSE 99; O2SAT 99
[2024-08-27 08:46] VITALS: BP 126/90; PULSE 98; O2SAT 99
[2024-08-27 09:00] VITALS: BP 124/88; PULSE 99; O2SAT 100
== END 2024-08-27 09:12 | disposition home or self-care (01) ==
PROVIDERS: Emergency Provider Emergency Medicine; PCP Family Medicine
DX: M54.16 Radiculopathy, lumbar region (principal); S39.012A Strain of muscle, fascia and tendon of lower back, initial encounter; X50.0XXA Overexertion from strenuous movement or load, initial encounter
CPT/HCPCS: 81003; 96372; 99283; A9270; J1885

== ENCOUNTER 2024-11-21 16:37 | Emergency (ER) | payer SELFPAY ==
[2024-11-21] VITALS (13 sets, daily range): BP systolic 122–154; BP diastolic 74–105; PULSE 86–125; RESP 14–35; TEMP 36.6; O2SAT 92–99; BMI 32.1
--- NOTE | 2024-11-21 16:47 | EKG_ITS ---
[address] [id number] [address] [address] Test Date: 2024-11-21 Pat Name: Saba Morgan Department: Room: Gender: Male Allied Health Professional: HAZEL : 1995 Requested By: Order Number: [id number] Reading MD: Zia Hernandez Measurements Intervals [place] Rate: 119 P: 52 HI: 146 QRS: 98 QRSD: 64 T: 39 QT: 290 QTc: 407 Interpretive Statements Sinus tachycardia Rightward axis Electronically Signed On 11-25-2024 0:07:18 PDT by Zia Hernandez
--- NOTE | 2024-11-21 16:48 | DI.RAD.S_ITS ---
PROCEDURE: XR CHEST 1V INDICATIONS: per provider TECHNIQUE: One view of the chest was acquired. COMPARISON: None. FINDINGS: Surgical changes and devices: None. Lungs and pleura: Lungs are clear. No pleural effusions or pneumothorax. Mediastinum: Mediastinal contours appear normal. Heart size is normal. Bones and chest wall: No suspicious bony lesions. Overlying soft tissues appear unremarkable. IMPRESSION: No acute cardiopulmonary pathology. Dictated by: Garcia Crenshaw M.D. on 11/21/2024 at 17:13 Approved by: Garcia Crenshaw M.D. on 11/21/2024 at 17:13
[2024-11-21 17:02] LABS: Base Excess VBG 0.3 mmol/L (0-4); HCO3 VBG 26 mmol/L (24-28); Oxygen Saturation VBG 85 % (70-75); PCO2 VBG 41.9 mmHg (45-50); PO2 VBG 50 mmHg (35-45); Total CO2 VBG 24 mmol/L (24-29); pH VBG 7.39 (7.33-7.43)
[2024-11-21 17:05] LABS: Alanine Aminotransferase 49 IU/L (<50); Albumin 4.9 g/dL (3.5-5.0); Albumin Globulin Ratio 1.2 (1.0-2.8); Alkaline Phosphatase 99 U/L (38-126); Aspartate Aminotransferase 38 IU/L (17-59); BUN Creatinine Ratio 25.3 (6-22); Bilirubin Total 0.7 mg/dL (0.2-1.3); Blood Urea Nitrogen 21 mg/dL (9-20); Calcium 10.2 mg/dL (8.4-10.2); Carbon Dioxide 26 mmol/L (22-32); Chloride 92 mmol/L (98-107); Estimated Glomerular Filt Rate > 60 mL/min (>60); Globulin 4.2 g/dL (1.7-4.1); HEMOLYSIS 33 (0-50); Sodium 129 mmol/L (137-145); Total Protein 9.1 g/dL (6.3-8.2)
[2024-11-21 17:12] LABS: Ketones (Beta-Hydroxybutyrate) 0.12 mmol/L (<0.27)
[2024-11-21 17:13] LABS: Add Manual Diff / Slide Review NO; Basophils Absolute Auto 100 /uL (0-100); Basophils Percent Auto 0.7 % (0-2); Eosinophils Absolute Auto 200 /uL (0-450); Eosinophils Percent Auto 1.1 % (2-4); Hemoglobin 18.9 g/dL (13.5-17.5); Lymphocytes Absolute Auto 1700 /uL (1100-4500); Lymphocytes Percent Auto 12.4 % (25-40); Mean Corpuscular HGB Conc 33.7 % (30-36); Mean Corpuscular Hemoglobin 28.8 PG (26-34); Mean Corpuscular Volume 85.4 fL (80-100); Monocytes Absolute Auto 1000 /uL (0-900); Monocytes Percent Auto 7.6 % (3-14); Neutrophils Absolute Auto 10500 /uL (1500-7000); Neutrophils Percent Auto 78.2 % (50-75); Platelet Count 210 X10^3/uL (150-400); Red Blood Cell Count 6.56 X10^6/uL (4.5-5.9); Red Cell Distribution Width 13.1 % (11.6-14.8); White Blood Cell Count 13.4 X10^3/uL (4.5-11.0)
[2024-11-21 17:18] LABS: Glucose 620 mg/dL (70-99)
[2024-11-21 17:19] LABS: Troponin I < 0.012 ng/mL (0.01-0.034)
[2024-11-21 17:20] LABS: Ur Creatinine Normal (Normal); Ur Specific Gravity Normal (Normal); Urine Amphetamines Negative (Negative); Urine Barbiturates Negative (Negative); Urine Benzodiazepines Negative (Negative); Urine Cocaine Negative (Negative); Urine MDMA Negative (Negative); Urine Methadone Negative (Negative); Urine Opiates Negative (Negative); Urine Oxycodone Negative (Negative); Urine Phencyclidine Negative (Negative); Urine THC Negative (Negative); Urine Tricyclic Antidepressant Negative (Negative); Urine pH Normal (Normal)
[2024-11-21 17:25] LABS: Hemoglobin A1C% w Est Avg Glu 10.8 % (4.0-6.0)
--- NOTE | 2024-11-21 17:35 | PC.NURSE ---
MD notified that BG is >600. Verbal order received for 10 units regular insulin IV.
[2024-11-21] MEDS: INSULIN REGULAR 100 UNIT/ML 3 ML VIAL 10 UNIT IV (17:38)
--- NOTE | 2024-11-21 17:47 | ED.GENADULT ---
HPI - General Adult <Morales Herrera MD - Last Filed: 11/22/24 08:28> General Chief complaint: Diabetic Problem Stated complaint: RIGHT foot tingling, hx of diabetes Time Seen by Provider: 11/21/24 17:46 Source: patient and EMS Mode of arrival: EMS History of Present Illness HPI narrative: Patient brought in by law enforcement for medical clearance. Patient coming from home. Patient has history diabetes. Complains of ongoing right great toe pain. History of chronic kidney disease and patient states he is being evaluated for neuropathy of the legs and feet by primary care Dr. Vel Arreguin. Patient states he has been compliant with his medications. Blood sugar read high prior to arrival and read high here. 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 Heart rate noted in likely related. Patient is adopted, does not know family history. Related Data Home Medications ?Medication ?Instructions ?Recorded ?Confirmed blood-glucose meter (FreeStyle #1 ea 02/05/24 02/05/24 Lite Meter kit) dapagliflozin propanediol 5 mg 5 mg PO DAILY 02/05/24 02/05/24 tablet (Farxiga) lancets 28 gauge (FreeStyle #100 ea 02/05/24 02/05/24 Lancets) Previous Rx's ?Medication ?Instructions ?Recorded lancets (Ultra touch 2 meter) #100 ea 04/17/20 Free Style Wendy or Dexcom 1 ea transdermal DIRECTED #4 ea 08/19/22 atorvastatin 20 mg tablet 20 mg PO BEDTIME #90 tabs 08/10/23 lisinopril 20 mg tablet 20 mg PO DAILY #90 tabs 08/10/23 metformin 1,000 mg tablet 1,000 mg PO BID #180 tabs 08/10/23 sildenafil (pulm.hypertension) 20 60 mg (3 x 20 mg) PO DAILY #30 tabs 10/12/23 mg tablet (Revatio) glucose meter,test strips,lancets #1 ea 10/14/23 insulin glargine 100 unit/mL (3 90 unit (0.9 mL) SUBCUT QPM 3 08/26/24 mL) subcutaneous pen (Lantus months #81 mL Solostar U-100 Insulin) hydroxyzine pamoate 25 mg capsule 25 mg PO QID PRN muscle spasm #20 08/27/24 caps ibuprofen 400 mg tablet (IBU) 400 mg PO Q6H PRN pain #30 tabs 08/27/24 oxycodone-acetaminophen 5 mg-325 1 tab PO Q6H PRN pain #10 tabs 08/27/24 mg tablet polyethylene glycol 3350 17 17 g PO DAILY #238 grams 08/27/24 gram/dose oral powder (Miralax) pen needle, diabetic 31 gauge x #180 ea 10/27/24 5/16 (Easy Comfort Pen [place]) Allergies Allergy/AdvReac Type Severity Reaction Status Date / Time cat dander (CAT DANDER) Allergy Unknown Verified 02/05/24 18:21 Penicillins AdvReac Intermediate VOMITING Verified 02/05/24 18:21 Review of Systems <Morales Herrera MD - Last Filed: 11/22/24 08:28> Review of Systems Narrative: GENERAL: Negative chills, fatigue, malaise, fever, sweats. HEENT: Negative sinus pain, ear pain, sore throat RESPIRATORY: Negative dyspnea, cough CARDIOVASCULAR: Positive chest pain, positive palpitations GASTROINTESTINAL: Negative vomiting, nausea, abdominal pain : Negative dysuria, frequency, hematuria MUSCULOSKELETAL: Positive muscle or bony pain SKIN: Negative rash, skin lesions NEUROLOGIC: Negative weakness, positive numbness ROS Unobtainable: All systems reviewed & are unremarkable except as noted in HPI and below Patient History <Morales Herrera MD - Last Filed: 11/22/24 08:28> Medical History (Updated 11/21/24 @ 18:25 by Morales Herrera MD) Facet arthropathy, lumbar Herniated nucleus pulposus, L4-5 Long-term insulin use in type 2 diabetes Morbid obesity with body mass index (BMI) of 40.0 to 49.9 Diabetes mellitus Diabetes mellitus (10/24/14) Surgical History Anesthesia History of third molar tooth extraction (~1999) Family History Father Diabetes mellitus Grandmother Schizophrenia Bipolar 1 disorder Mother Diabetes mellitus Hypertension Obesity Social History marital status: unmarried,single Smoking Status: Current every day smoker alcohol intake: current substance use type: marijuana eating out: 1-3 times/week Type(s) of exercise: none Smoking Status: Current every day smoker tobacco type: cigarettes alcohol intake frequency: 0-2 drinks per day Exam <Morales Herrera MD - Last Filed: 11/22/24 08:28> Narrative Exam Narrative: GENERAL: in no distress, not toxic not dyspneic HEAD: Normocephalic. EYES: Pupils equal round ENT: Mucous membranes moist. NECK: Trachea midline. CARDIOVASCULAR: Regular rate and rhythm, tachycardic RESPIRATORY: Clear to auscultation. Breath sounds equal bilaterally. No wheezes, rales, or rhonchi. GASTROINTESTINAL: Abdomen soft, non-tender EXTREMITIES: No gross deformities. Bilateral feet legs and knees exposed. No cellulitis no erythema edema. Examination right great toe is tender to touch no bruising deformity toenail intact. No cellulitis. No red streaking. It is tender to touch without any bruising. Limited range of motion of the toe due to pain. BACK: No flank tenderness. NEURO: AOx4. Clear speech SKIN: Warm and dry PSYCH: Not anxious, is cooperative Initial Vital Signs Initial Vital Signs: Vital Signs Temperature 97.9 F 11/21/24 16:38 Pulse Rate 122 H 11/21/24 16:38 Respiratory Rate 18 11/21/24 16:38 Blood Pressure 149/91 H 11/21/24 16:38 Pulse Oximetry 97 11/21/24 16:38 Oxygen Delivery Method Room Air 11/21/24 16:38 <Gualberto Cleaning MD - Last Filed: 11/22/24 04:06> Initial Vital Signs Initial Vital Signs: Vital Signs Temperature 97.9 F 11/21/24 16:38 Pulse Rate 122 H 11/21/24 16:38 Respiratory Rate 18 11/21/24 16:38 Blood Pressure 149/91 H 11/21/24 16:38 Pulse Oximetry 97 11/21/24 16:38 Oxygen Delivery Method Room Air 11/21/24 16:38 Course <Morales Herrera MD - Last Filed: 11/22/24 08:28> Orders Ordered: Discontinued Medications Sodium Chloride (Normal Saline 0.9%) 1,000 mls @ 1,000 mls/hr IV BOLUS ONE Stop: 11/21/24 19:24 Last Infusion: 11/21/24 20:15 Dose: Infused Documented By: Admin: 11/21/24 18:05 Dose: 1,000 mls/hr Documented By: Insulin Human Regular (Insulin Regular 100 Unit/Ml 3 Ml Vial) 10 unit IV NOW ONE Stop: 11/21/24 17:46 Last Admin: 11/21/24 17:38 Dose: 10 unit Documented By: Co-signed By: FABIÁN Insulin Human Regular (Insulin Regular 100 Unit/Ml 3 Ml Vial) 10 unit IV NOW ONE Stop: 11/21/24 18:26 Last Admin: 11/21/24 19:17 Dose: Not Given Documented By: Non-Formulary Medication (Insulin Regular 5 Units) 5 unit IV NOW ONE Stop: 11/21/24 19:14 Last Admin: 11/21/24 19:17 Dose: 5 unit Documented By: Ondansetron HCl (Ondansetron 4 Mg/2 Ml Inj) 4 mg IV NOW ONE Stop: 11/21/24 17:56 Last Admin: 11/21/24 17:58 Dose: 4 mg Documented By: Vital Signs Vital signs: Vital Signs - 8 hr 11/21/24 20:30 11/21/24 20:30 Pulse Rate 96 H Respiratory Rate 16 Blood Pressure 130/105 H Pulse Oximetry 99 Oxygen Delivery Method Room Air <Gualberto Cleaning MD - Last Filed: 11/22/24 04:06> Orders Ordered: Discontinued Medications Sodium Chloride (Normal Saline 0.9%) 1,000 mls @ 1,000 mls/hr IV BOLUS ONE Stop: 11/21/24 19:24 Last Infusion: 11/21/24 20:15 Dose: Infused Documented By: Admin: 11/21/24 18:05 Dose: 1,000 mls/hr Documented By: Insulin Human Regular (Insulin Regular 100 Unit/Ml 3 Ml Vial) 10 unit IV NOW ONE Stop: 11/21/24 17:46 Last Admin: 11/21/24 17:38 Dose: 10 unit Documented By: Co-signed By: FABIÁN Insulin Human Regular (Insulin Regular 100 Unit/Ml 3 Ml Vial) 10 unit IV NOW ONE Stop: 11/21/24 18:26 Last Admin: 11/21/24 19:17 Dose: Not Given Documented By: Non-Formulary Medication (Insulin Regular 5 Units) 5 unit IV NOW ONE Stop: 11/21/24 19:14 Last Admin: 11/21/24 19:17 Dose: 5 unit Documented By: Ondansetron HCl (Ondansetron 4 Mg/2 Ml Inj) 4 mg IV NOW ONE Stop: 11/21/24 17:56 Last Admin: 11/21/24 17:58 Dose: 4 mg Documented By: Vital Signs Vital signs: Vital Signs - 8 hr 11/21/24 20:30 11/21/24 20:30 Pulse Rate 96 H Respiratory Rate 16 Blood Pressure 130/105 H Pulse Oximetry 99 Oxygen Delivery Method Room Air Medical Decision Making <Morales Herrera MD - Last Filed: 11/22/24 08:28> Lab Data 11/21/24 16:30 11/21/24 16:30 Labs: Lab Results 11/21/24 11/21/24 11/21/24 Range/Units 16:30 16:59 17:10 WBC 13.4 H (4.5-11.0) X10^3/uL RBC 6.56 H (4.5-5.9) X10^6/uL Hgb 18.9 H (13.5-17.5) g/dL Hct 56.0 H (41-53) % MCV 85.4 (80-100) fL MCH 28.8 (26-34) PG MCHC 33.7 (30-36) % RDW 13.1 (11.6-14.8) % Plt Count 210 (150-400) X10^3/uL Neut % (Auto) 78.2 H (50-75) % Lymph % (Auto) 12.4 L (25-40) % [place] % (Auto) 7.6 (3-14) % Eos % (Auto) 1.1 L (2-4) % Baso % (Auto) 0.7 (0-2) % Neut # (Auto) 98890 H (4775-2328) /uL Lymph # (Auto) 1700 (9000-8852) /uL [place] # (Auto) 1000 H (0-900) /uL Eos # (Auto) 200 (0-450) /uL Baso # (Auto) 100 (0-100) /uL VBG pH 7.39 (7.33-7.43) VBG pCO2 41.9 L (45-50) mmHg VBG pO2 50 H (35-45) mmHg VBG HCO3 26 (24-28) mmol/L VBG Total CO2 24 (24-29) mmol/L VBG O2 Saturation 85 H (70-75) % VBG Base Excess 0.3 (0-4) mmol/L Sodium 129 L (137-145) mmol/L Potassium 5.0 (3.4-5.1) mmol/L Chloride 92 L (98-107) mmol/L Carbon Dioxide 26 (22-32) mmol/L BUN 21 H (9-20) mg/dL Creatinine 0.83 (0.66-1.25) mg/dL Estimated GFR > 60 (>60) mL/min BUN/Creatinine Ratio 25.3 H (6-22) Glucose 620 H* (70-99) mg/dL Hemoglobin A1c 10.8 H (4.0-6.0) % Calcium 10.2 (8.4-10.2) mg/dL Total Bilirubin 0.7 (0.2-1.3) mg/dL AST 38 (17-59) IU/L ALT 49 (<50) IU/L Alkaline Phosphatase 99 (38-126) U/L Troponin I < 0.012 (0.01-0.034) ng/mL Total Protein 9.1 H (6.3-8.2) g/dL Albumin 4.9 (3.5-5.0) g/dL Globulin 4.2 H (1.7-4.1) g/dL Albumin/Globulin Ratio 1.2 (1.0-2.8) U Opiates 300ng/mL cut Negative (Negative) Ur Oxycodone Screen Negative (Negative) Urine Methadone Screen Negative (Negative) Ur Barbiturates Screen Negative (Negative) U Tricyclic Antidepress Negative (Negative) Ur Phencyclidine Scrn Negative (Negative) Ur Amphetamines Screen Negative (Negative) U Methamphetamines Scrn Positive H (Negative) Ur MDMA Scrn (Ecstasy) Negative (Negative) U Benzodiazepines Scrn Negative (Negative) Urine Cocaine Screen Negative (Negative) U Marijuana (THC) Screen Negative (Negative) Urine pH Normal (Normal) Urine Specific [place] Normal (Normal) Ketones 0.12 (<0.27) mmol/L Ur Creatinine Normal (Normal) Point of Care Testing Glucose POC 292 Point of care testing: Point of Care Testing Glucose POC 292 Imaging Data Chest x-ray: Radiologist's Impression: [address] [address] XRay Report Signed Patient: Saba Morgan MR#: [id number] : 1995 Acct:[id number] Age/Sex: 29 / M Date of Service: 11/21/24 Loc: ED Accession Number: [id number] Procedure: XR chest 1V Ordering Provider: Morales Herrera MD PROCEDURE: XR CHEST 1V INDICATIONS: per provider TECHNIQUE: One view of the chest was acquired. COMPARISON: None. FINDINGS: Surgical changes and devices: None. Lungs and pleura: Lungs are clear. No pleural effusions or pneumothorax. Mediastinum: Mediastinal contours appear normal. Heart size is normal. Bones and chest wall: No suspicious bony lesions. Overlying soft tissues appear unremarkable. IMPRESSION: No acute cardiopulmonary pathology. Dictated by: Garcia Crenshaw M.D. on 11/21/2024 at 17:13 Approved by: Garcia Crenshaw M.D. on 11/21/2024 at 17:13 Extremity x-ray #1: Radiologist's Impression: [address] [address] XRay Report Signed Patient: Saba Morgan MR#: [id number] : 1995 Acct:[id number] Age/Sex: 29 / M Date of Service: 11/21/24 Loc: ED Accession Number: [id number] Procedure: XR foot RT min 3V Ordering Provider: Morales Herrera MD PROCEDURE: XR FOOT RT MIN 3V INDICATIONS: Great toe pain TECHNIQUE: 3 views of the foot were acquired. COMPARISON: None. FINDINGS: Bones: Acute slightly comminuted fracture involving 1st proximal phalangeal head and neck is seen with fracture line extending to 1st interphalangeal joint space. No other fracture or dislocation. No suspicious bony lesions. Soft tissues: No tibiotalar joint effusion. Achilles tendon appears normal. IMPRESSION: Acute slightly comminuted intra-articular fracture involving 1st proximal phalangeal head and neck as above. Dictated by: Garcia Crenshaw M.D. on 11/21/2024 at 18:04 Approved by: Garcia Crenshaw M.D. on 11/21/2024 at 18:05 [facility] Narrative Medical decision making narrative: Patient brought in by law enforcement for medical clearance. Patient coming from home. Patient has history diabetes. Complains of ongoing right great toe pain. History of chronic kidney disease and patient states he is being evaluated for neuropathy of the legs and feet by primary care Dr. Vel Arreguin. Patient states he has been compliant with his medications. Blood sugar read high prior to arrival and read high here. 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 Heart rate noted in likely related. Patient is adopted, does not know family history. After history and exam, CBC CMP hemoglobin A1c VBG EKG troponin chest x-ray normal saline insulin MDM Medical records reviewed: No recent visit for this complaint Differential considered: Includes but not limited to Lab Test results independently reviewed as above. Pertinent findings: WBC 13.4 hemoglobin 18.9 VBG 7.39, 41.9, 50, sodium 129 potassium 5.0 BUN 21 creatinine 0.83 GFR greater than 60 glucose 620 hemoglobin A1c 10.8 troponin less than 0.012 drug screen positive methamphetamine Independently reviewed EKG sinus tachycardia rate 119 Imaging studies independently reviewed: Chest x-ray no acute finding x-ray right foot, 1st toe fracture Consultations: 6:[address] Arreguin, primary care. No indication for admission. Will need get the blood sugar down and follow up in his office. Re-evaluations: 6:25 p.m.. Updated patient results. Awaiting for call back from his primary care. He did break his toe. Postop shoe will be provided. You will likely be discharged home. However awaiting call back from his primary care. Discussion: 6:[address] Herrera: Sign out to Dr. Cleaning, repeat laboratory studies are pending for glucose levels. Patient does have a broken toe and this can be followed up with Podiatry, postop shoe will be needed. Patient is under custody of law enforcement. 2 L normal saline ordered 10 units of regular insulin ordered. That will be total of 20 units of regular insulin Diagnosis: Hyperglycemia, closed toe fracture <Gualberto Cleaning MD - Last Filed: 11/22/24 04:06> Lab Data Labs: Lab Results 11/21/24 11/21/24 11/21/24 Range/Units 16:30 16:59 17:10 WBC 13.4 H (4.5-11.0) X10^3/uL RBC 6.56 H (4.5-5.9) X10^6/uL Hgb 18.9 H (13.5-17.5) g/dL Hct 56.0 H (41-53) % MCV 85.4 (80-100) fL MCH 28.8 (26-34) PG MCHC 33.7 (30-36) % RDW 13.1 (11.6-14.8) % Plt Count 210 (150-400) X10^3/uL Neut % (Auto) 78.2 H (50-75) % Lymph % (Auto) 12.4 L (25-40) % [place] % (Auto) 7.6 (3-14) % Eos % (Auto) 1.1 L (2-4) % Baso % (Auto) 0.7 (0-2) % Neut # (Auto) 24823 H (5840-8735) /uL Lymph # (Auto) 1700 (5858-4758) /uL [place] # (Auto) 1000 H (0-900) /uL Eos # (Auto) 200 (0-450) /uL Baso # (Auto) 100 (0-100) /uL VBG pH 7.39 (7.33-7.43) VBG pCO2 41.9 L (45-50) mmHg VBG pO2 50 H (35-45) mmHg VBG HCO3 26 (24-28) mmol/L VBG Total CO2 24 (24-29) mmol/L VBG O2 Saturation 85 H (70-75) % VBG Base Excess 0.3 (0-4) mmol/L Sodium 129 L (137-145) mmol/L Potassium 5.0 (3.4-5.1) mmol/L Chloride 92 L (98-107) mmol/L Carbon Dioxide 26 (22-32) mmol/L BUN 21 H (9-20) mg/dL Creatinine 0.83 (0.66-1.25) mg/dL Estimated GFR > 60 (>60) mL/min BUN/Creatinine Ratio 25.3 H (6-22) Glucose 620 H* (70-99) mg/dL Hemoglobin A1c 10.8 H (4.0-6.0) % Calcium 10.2 (8.4-10.2) mg/dL Total Bilirubin 0.7 (0.2-1.3) mg/dL AST 38 (17-59) IU/L ALT 49 (<50) IU/L Alkaline Phosphatase 99 (38-126) U/L Troponin I < 0.012 (0.01-0.034) ng/mL Total Protein 9.1 H (6.3-8.2) g/dL Albumin 4.9 (3.5-5.0) g/dL Globulin 4.2 H (1.7-4.1) g/dL Albumin/Globulin Ratio 1.2 (1.0-2.8) U Opiates 300ng/mL cut Negative (Negative) Ur Oxycodone Screen Negative (Negative) Urine Methadone Screen Negative (Negative) Ur Barbiturates Screen Negative (Negative) U Tricyclic Antidepress Negative (Negative) Ur Phencyclidine Scrn Negative (Negative) Ur Amphetamines Screen Negative (Negative) U Methamphetamines Scrn Positive H (Negative) Ur MDMA Scrn (Ecstasy) Negative (Negative) U Benzodiazepines Scrn Negative (Negative) Urine Cocaine Screen Negative (Negative) U Marijuana (THC) Screen Negative (Negative) Urine pH Normal (Normal) Urine Specific [place] Normal (Normal) Ketones 0.12 (<0.27) mmol/L Ur Creatinine Normal (Normal) Point of Care Testing Glucose POC 292 Point of care testing: Point of Care Testing Glucose POC 292 MDM Narrative Medical decision making narrative: Patient brought in by law enforcement for medical clearance. Patient coming from home. Patient has history diabetes. Complains of ongoing right great toe pain. History of chronic kidney disease and patient states he is being evaluated for neuropathy of the legs and feet by primary care Dr. Vel Arreguin. Patient states he has been compliant with his medications. Blood sugar read high prior to arrival and read high here. 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 Heart rate noted in likely related. Patient is adopted, does not know family history. After history and exam, CBC CMP hemoglobin A1c VBG EKG troponin chest x-ray normal saline insulin MDM Medical records reviewed: No recent visit for this complaint Differential considered: Includes but not limited to Lab Test results independently reviewed as above. Pertinent findings: WBC 13.4 hemoglobin 18.9 VBG 7.39, 41.9, 50, sodium 129 potassium 5.0 BUN 21 creatinine 0.83 GFR greater than 60 glucose 620 hemoglobin A1c 10.8 troponin less than 0.012 drug screen positive methamphetamine Independently reviewed EKG sinus tachycardia rate 119 Imaging studies independently reviewed: Chest x-ray no acute finding x-ray right foot, 1st toe fracture Consultations: 6:[address] Arreguin, primary care. No indication for admission. Will need get the blood sugar down and follow up in his office. Re-evaluations: 6:25 p.m.. Updated patient results. Awaiting for call back from his primary care. He did break his toe. Postop shoe will be provided. You will likely be discharged home. However awaiting call back from his primary care. Discussion: 6:[address] Herrera: Sign out to Dr. Cleaning, repeat laboratory studies are pending for glucose levels. Patient does have a broken toe and this can be followed up with Podiatry, postop shoe will be needed. Patient is under custody of law enforcement. 2 L normal saline ordered 10 units of regular insulin ordered. That will be total of 20 units of regular insulin Diagnosis: Hyperglycemia, closed toe fracture 11/21/241899, Black. Sign-out from Dr. Herrera. 29-year-old male here for clearance for law enforcement placement. History of diabetes, elevated sugar, non ketotic, ketones not elevated, anion gap normal, IV fluid bolus 2 L, IV regular insulin 10 units given, glucose initially 600s, decreased to 400s, goal less than 300. Right great toe fracture noted by x-ray, test shoe ordered. Can follow up as an outpatient with Orthopedic surgery. Repeat insulin 5 units bolus has been ordered. Hourly glucose until glucose level acceptable for discharge law enforcement. Assumed care. 2014, repeat glucose 292. Stable for discharge to law enforcement custody. Discharge Plan Departure Patient Disposition: Home Clinical Impression: Acute hyperglycemia Diabetes mellitus Qualifiers: Diabetes mellitus type: other specified (including MANUEL) Diabetes mellitus manager long term care insulin use: unspecified manager long term care insulin use status Diabetes mellitus complication status: with other specified complication Qualified Code(s): E13.69 - Other specified diabetes mellitus with other specified complication Fracture of toe of right foot Qualifiers: Encounter type: initial encounter Toe: great toe Fracture type: closed Phalanx: proximal Fracture alignment: nondisplaced Qualified Code(s): S92.414A - Nondisplaced fracture of proximal phalanx of right great toe, initial encounter for closed fracture Activity Restrictions/Additional Instructions: Here for law enforcement clearance. Elevated blood sugars, history of diabetes, screening labs showed initial blood sugar in the 600 range, no ketoacidosis by laboratory testing, IV fluid boluses given, IV insulin boluses given. Eventual improvement of blood sugar down in the 400s and then to 92 on last measurement. Continue your your prescribed diabetes medications. Further follow up with your regular provider. You had right great toe pain, on x-ray you have a fracture in that area. Cast shoe advised. Follow up with Orthopedic surgery, contact clinic information provided for discharge. Medically cleared for disposition to law enforcement custody. Prescriptions: No Action Free Style Wendy or Dexcom 1 ea transdermal DIRECTED Qty: 4 12RF (DME) blood-glucose meter [FreeStyle Lite Meter] Kit See Rx Instructions .ROUTE .MEDSUPPLY Qty: 1 Patient Comments: [NO ORIGINAL SIG] Rx Instructions: As directed (DME) lancets [FreeStyle Lancets] 28 gauge misc See Rx Instructions .ROUTE 3XD Qty: 100 Rx Instructions: As directed dapagliflozin propanediol [Farxiga] 5 mg tablet 5 mg PO DAILY (DME) lancets (Ultra touch 2 meter) Qty: 100 11RF Rx Instructions: As directed twice daily for blood sugar testing lisinopril 20 mg tablet 20 mg PO DAILY Qty: 90 3RF atorvastatin 20 mg tablet 20 mg PO BEDTIME Qty: 90 3RF sildenafil (pulm.hypertension) [Revatio] 20 mg tablet 60 mg PO DAILY Qty: 30 5RF Rx Instructions: take up to three tabs a day as needed (DME) glucose meter,test strips,lancets Qty: 1 0RF Rx Instructions: As directed once daily for blood glucose monitoring insulin glargine [Lantus Solostar U-100 Insulin] 100 unit/mL (3 mL) insulin pen 90 unit SUBCUT QPM 90 Days Qty: 81 3RF (DME) pen needle, diabetic [Easy Comfort Pen [place]] 31 gauge x 5/16 needle See Rx Instructions .Route Qty: 180 0RF Rx Instructions: As directed twice daily for insulin injection metformin 1,000 mg tablet 1,000 mg PO BID Qty: 180 1RF ibuprofen [IBU] 400 mg tablet 400 mg PO Q6H PRN (Reason: pain) Qty: 30 0RF oxycodone-acetaminophen 5-325 mg tablet 1 tab PO Q6H PRN (Reason: pain) Qty: 10 0RF hydroxyzine pamoate 25 mg capsule 25 mg PO QID PRN (Reason: muscle spasm) Qty: 20 0RF polyethylene glycol 3350 [Miralax] 17 gram/dose powder 17 g PO DAILY Qty: 238 0RF Referrals: Vel Arreugin MD [Primary Care Provider, Family Practice] Consuelo Calderon DO [Physician, Orthopedic Surgery] Zia Betts MD [Physician, Orthopedic Surgery] Stand Alone Forms: Patient Portal/API
[2024-11-21] MEDS: ONDANSETRON 4 MG/2 ML INJ IV (17:58)
[2024-11-21] MEDS: SODIUM CHLORIDE 0.9% 1,000 ML 1000 ML IV (18:05)
[2024-11-21] MEDS: INSULIN REGULAR 5 EACH IV (19:17)
== END 2024-11-21 20:51 | disposition home or self-care (01) ==
PROVIDERS: Emergency Medicine; Emergency Provider Emergency Medicine; PCP Family Medicine
DX: E11.65 Type 2 diabetes mellitus with hyperglycemia (principal); Z79.4 Long term (current) use of insulin; S92.414A Nondisplaced fracture of proximal phalanx of right great toe, initial encounter for closed fracture; R07.9 Chest pain, unspecified; R00.2 Palpitations
CPT/HCPCS: 29550; 71045; 73630; 80053; 80305; 82009; 82805; 82962; 83036; 84484; 85025; 93005; 96361; 96374; 96375; 96376; 99284; J2405

== ENCOUNTER 2025-03-21 13:25 | Emergency (ER) | payer SELFPAY ==
[2025-03-21 13:41] VITALS: BP 149/98; PULSE 96; RESP 18; TEMP 37.1; O2SAT 99; BMI 30.7
--- NOTE | 2025-03-21 14:00 | PC.NURSE ---
Pt agrees that he will keep himself safe while here in the hospital. States he wants to have help
--- NOTE | 2025-03-21 15:21 | ED.PSYCH ---
HPI - Psych <Koffi Orr MD - Last Filed: 04/03/25 15:46> General Chief Complaint: Psychiatric Symptoms Stated Complaint: mental health eval/needs insulin Time Seen by Provider: 03/21/25 15:21 Source: patient Mode of arrival: Ambulatory History of Present Illness HPI Narrative: 30-year-old male patient with a history of type 2 diabetes, dyslipidemia, FERNANDO, ADHD/bipolar disorder and morbid obesity who complains of having thoughts of suicide for about 5 days since he broke up with his girlfriend. He has had a rough course emotionally for about 2 years since his sister committed suicide in [place]. He has gone through a divorce because of having affairs. He has 2 children with his . He and his girlfriend started using drugs 1-2 years ago and he is trying to get off but has not been able to. He thinks his girlfriend least his marijuana with MDMA and cocaine. He admits to methamphetamine, cannabis, fentanyl and tobacco. He has tried MDMA and cocaine. He rarely drinks alcohol. His drug of choice is methamphetamine. He has a vague plan of suicide which is to provoke the police to shoot him by pertaining to have a gun in his pocket. His suicidal thoughts wax and wane and are not constantly present. Related Data Home Medications ?Medication ?Instructions ?Recorded ?Confirmed blood-glucose meter (FreeStyle #1 ea 02/05/24 02/05/24 Lite Meter kit) dapagliflozin propanediol 5 mg 5 mg PO DAILY 02/05/24 02/05/24 tablet (Farxiga) lancets 28 gauge (FreeStyle #100 ea 02/05/24 02/05/24 Lancets) Previous Rx's ?Medication ?Instructions ?Recorded lancets (Ultra touch 2 meter) #100 ea 04/17/20 Free Style Wendy or Dexcom 1 ea transdermal DIRECTED #4 ea 08/19/22 atorvastatin 20 mg tablet 20 mg PO BEDTIME #90 tabs 08/10/23 lisinopril 20 mg tablet 20 mg PO DAILY #90 tabs 08/10/23 metformin 1,000 mg tablet 1,000 mg PO BID #180 tabs 08/10/23 sildenafil (pulm.hypertension) 20 60 mg (3 x 20 mg) PO DAILY #30 tabs 10/12/23 mg tablet (Revatio) glucose meter,test strips,lancets #1 ea 10/14/23 insulin glargine 100 unit/mL (3 90 unit (0.9 mL) SUBCUT QPM 3 08/26/24 mL) subcutaneous pen (Lantus months #81 mL Solostar U-100 Insulin) hydroxyzine pamoate 25 mg capsule 25 mg PO QID PRN muscle spasm #20 08/27/24 caps ibuprofen 400 mg tablet (IBU) 400 mg PO Q6H PRN pain #30 tabs 08/27/24 oxycodone-acetaminophen 5 mg-325 1 tab PO Q6H PRN pain #10 tabs 08/27/24 mg tablet polyethylene glycol 3350 17 17 g PO DAILY #238 grams 08/27/24 gram/dose oral powder (Miralax) pen needle, diabetic 31 gauge x #180 ea 10/27/2410/28 (Easy Comfort Pen Bee) Allergies Allergy/AdvReac Type Severity Reaction Status Date / Time amoxicillin Allergy Mild Verified 03/21/25 13:41 cat dander (CAT DANDER) Allergy Unknown Verified 03/21/25 13:41 Penicillins AdvReac Intermediate VOMITING Verified 03/21/25 13:41 Review of Systems <Koffi Orr MD - Last Filed: 04/03/25 15:46> Review of Systems ROS Unobtainable: All systems reviewed & are unremarkable except as noted in HPI and below Psychiatric Psychiatric: Reports as per HPI Patient History <Koffi Orr MD - Last Filed: 04/03/25 15:46> Medical History (Updated 03/22/25 @ 14:37 by Ventura Mtz DO) Facet arthropathy, lumbar Herniated nucleus pulposus, L4-5 Morbid obesity with body mass index (BMI) of 40.0 to 49.9 Diabetes mellitus Diabetes mellitus (10/24/14) Surgical History Anesthesia History of third molar tooth extraction (~1999) Family History Father Diabetes mellitus Grandmother Schizophrenia Bipolar 1 disorder Mother Diabetes mellitus Hypertension Obesity Social History marital status: unmarried,single Smoking Status: Current some day smoker alcohol intake: current substance use type: marijuana eating out: 1-3 times/week Type(s) of exercise: none Smoking Status: Current some day smoker tobacco type: cigarettes alcohol intake frequency: 0-2 drinks per day Exam <Koffi Orr MD - Last Filed: 04/03/25 15:46> Narrative Exam Narrative: General: Alert and conversant. No distress. Appears well nourished and well hydrated Craniofacial: No evidence of trauma. Nontender and no swelling. Eyes: PERRLA EOMI conjunctiva clear HEENT: Tragus, pinnae nontender. Tympanic membranes normal appearance. Oropharynx clear with no swelling, exudate or asymmetry of the pharynx. Nares clear. No sinus tenderness Neck: No tenderness or adenopathy. No meningismus. No JVD Lungs: Clear to auscultation with good air movement. No wheezing, rales or rhonchi. No respiratory distress Cardiac: Regular rate and rhythm with no appreciable murmur or gallop Abdomen: Soft, nontender with no distention or masses. Normal bowel sounds. No rebound or guarding Musculoskeletal: Exam of the extremities, axial spine and ribcage reveals no deformity, bony tenderness or swelling. Range of motion intact Neuro: Alert and oriented. Cranial nerves, motor, sensory and cerebellar all grossly intact. No focal deficit Skin: Warm and normal color. No rashes Psychological: Sad and slightly flat affect. No evidence of delusion or psychosis. Depressed mood and tearful. Initial Vital Signs Initial Vital Signs: Vital Signs Temperature 98.7 F 03/21/25 13:41 Pulse Rate 96 H 03/21/25 13:41 Respiratory Rate 18 03/21/25 13:41 Blood Pressure 149/98 H 03/21/25 13:41 Pulse Oximetry 99 03/21/25 13:41 Oxygen Delivery Method Room Air 03/21/25 13:41 <Gualberto Cleaning MD - Last Filed: 03/22/25 15:07> Initial Vital Signs Initial Vital Signs: Vital Signs Temperature 98.7 F 03/21/25 13:41 Pulse Rate 96 H 03/21/25 13:41 Respiratory Rate 18 03/21/25 13:41 Blood Pressure 149/98 H 03/21/25 13:41 Pulse Oximetry 99 03/21/25 13:41 Oxygen Delivery Method Room Air 03/21/25 13:41 <Ventura Mtz DO - Last Filed: 03/22/25 18:19> Initial Vital Signs Initial Vital Signs: Vital Signs Temperature 98.7 F 03/21/25 13:41 Pulse Rate 96 H 03/21/25 13:41 Respiratory Rate 18 03/21/25 13:41 Blood Pressure 149/98 H 03/21/25 13:41 Pulse Oximetry 99 03/21/25 13:41 Oxygen Delivery Method Room Air 03/21/25 13:41 Course <Koffi Orr MD - Last Filed: 04/03/25 15:46> Course Course Narrative: Are shows worker has been trying to get him placement at [facility]. We have not heard back yet [facility] called back to say they are not accepting him for placement. Orders Ordered: Discontinued Medications Ibuprofen (Ibuprofen 400 Mg Tablet) 800 mg PO NOW ONE Stop: 03/22/25 06:27 Last Admin: 03/22/25 06:31 Dose: 800 mg Documented By: AB Naloxone HCl (Naloxone 4 Mg Nasal [place]) 4 mg MISC DIRECTED ONE Stop: 03/22/25 14:37 Last Admin: 03/22/25 14:42 Dose: 4 mg Documented By: SB Vital Signs Vital signs: Vital Signs - 8 hr 03/22/25 14:14 Temperature 97.6 F Pulse Rate 90 Respiratory Rate 18 Blood Pressure 131/86 Pulse Oximetry 99 Oxygen Delivery Method Room Air <Gualberto Cleaning MD - Last Filed: 03/22/25 15:07> Orders Ordered: Discontinued Medications Ibuprofen (Ibuprofen 400 Mg Tablet) 800 mg PO NOW ONE Stop: 03/22/25 06:27 Last Admin: 03/22/25 06:31 Dose: 800 mg Documented By: AB Naloxone HCl (Naloxone 4 Mg Nasal [place]) 4 mg MISC DIRECTED ONE Stop: 03/22/25 14:37 Last Admin: 03/22/25 14:42 Dose: 4 mg Documented By: SB Vital Signs Vital signs: Vital Signs - 8 hr 03/22/25 14:14 Temperature 97.6 F Pulse Rate 90 Respiratory Rate 18 Blood Pressure 131/86 Pulse Oximetry 99 Oxygen Delivery Method Room Air <Ventura Mtz DO - Last Filed: 03/22/25 18:19> Orders Ordered: Discontinued Medications Ibuprofen (Ibuprofen 400 Mg Tablet) 800 mg PO NOW ONE Stop: 03/22/25 06:27 Last Admin: 03/22/25 06:31 Dose: 800 mg Documented By: AB Naloxone HCl (Naloxone 4 Mg Nasal [place]) 4 mg MISC DIRECTED ONE Stop: 03/22/25 14:37 Last Admin: 03/22/25 14:42 Dose: 4 mg Documented By: SB Vital Signs Vital signs: Vital Signs - 8 hr 03/22/25 14:14 Temperature 97.6 F Pulse Rate 90 Respiratory Rate 18 Blood Pressure 131/86 Pulse Oximetry 99 Oxygen Delivery Method Room Air MDM - Psych <Koffi Orr MD - Last Filed: 04/03/25 15:46> Differential Diagnosis Differential diagnosis: Likely suicidal ideation Lab Data Attestation: I reviewed the patient's lab results. Lab results narrative: CBC, CMP unremarkable. Urinalysis and urine drug screen positive for methamphetamine 03/21/25 16:07 03/21/25 16:07 Labs: Lab Results 03/21/25 03/21/25 03/21/25 Range/Units 16:07 17:19 17:19 WBC 8.3 (4.5-11.0) X10^3/uL RBC 5.67 (4.5-5.9) X10^6/uL Hgb 16.1 (13.5-17.5) g/dL Hct 47.4 (41-53) % MCV 83.6 (80-100) fL MCH 28.3 (26-34) PG MCHC 33.9 (30-36) % RDW 13.8 (11.6-14.8) % Plt Count 183 (150-400) X10^3/uL Neut % (Auto) 62.8 (50-75) % Lymph % (Auto) 24.7 L (25-40) % [place] % (Auto) 8.7 (3-14) % Eos % (Auto) 2.7 (2-4) % Baso % (Auto) 1.1 (0-2) % Neut # (Auto) 5200 (5011-1038) /uL Lymph # (Auto) 2000 (0508-3758) /uL [place] # (Auto) 700 (0-900) /uL Eos # (Auto) 200 (0-450) /uL Baso # (Auto) 100 (0-100) /uL Sodium 137 (137-145) mmol/L Potassium 4.0 (3.4-5.1) mmol/L Chloride 101 (98-107) mmol/L Carbon Dioxide 28 (22-32) mmol/L BUN 13 (9-20) mg/dL Creatinine 0.70 (0.66-1.25) mg/dL Estimated GFR > 60 (>60) mL/min BUN/Creatinine Ratio 18.6 (6-22) Glucose 201 H (70-99) mg/dL Calcium 9.0 (8.4-10.2) mg/dL Total Bilirubin 0.8 (0.2-1.3) mg/dL AST 35 (17-59) IU/L ALT 34 (<50) IU/L Alkaline Phosphatase 54 (38-126) U/L Total Protein 7.8 (6.3-8.2) g/dL Albumin 4.5 (3.5-5.0) g/dL Globulin 3.3 (1.7-4.1) g/dL Albumin/Globulin Ratio 1.4 (1.0-2.8) TSH 0.76 (0.47-4.68) uIU/mL Urine Color Yellow Urine Appearance Clear Urine pH 5.5 Normal (4.5-8.0) Ur Specific [place] 1.025 (1.000-1.035) Urine Protein 1+ H (Negative) Urine Glucose (UA) Trace H (Negative) g/dL Urine Ketones Trace H (NEGATIVE) Urine Occult Blood Negative (Negative) Urine Nitrate Negative (Negative) Urine Bilirubin 1+ H (NEGATIVE) Ur Bilirubin Confirm Negative (Negative) Urine Urobilinogen 2.0 H (0.2) E.U./dL Ur Leukocyte Esterase Negative (NEGATIVE) Urine RBC None seen (0-5/HPF) Urine WBC 1-5/hpf (0-5/HPF) Ur Squamous Epith Cells None seen (0-5/HPF) Ur Transition Epith Cell None seen (0-5/HPF) Ur Renal Epithelial Cell None seen (0-1/HPF) Urine Bacteria None seen (None) Urine Mucus 4+ H (Negative) Ur Culture Indicated? Cult not indicated Vol Urine Centrifuged 10ml (spun) Salicylates < 1.0 (<20) mg/dL U Opiates 300ng/mL cut Negative (Negative) Ur Oxycodone Screen Negative (Negative) Urine Methadone Screen Negative (Negative) Acetaminophen < 10 (10-30) ug/mL Ur Barbiturates Screen Negative (Negative) U Tricyclic Antidepress Negative (Negative) Ur Phencyclidine Scrn Negative (Negative) Ur Amphetamines Screen Positive H (Negative) U Methamphetamines Scrn Positive H (Negative) Ur MDMA Scrn (Ecstasy) Negative (Negative) U Benzodiazepines Scrn Negative (Negative) Urine Cocaine Screen Negative (Negative) U Marijuana (THC) Screen Negative (Negative) Urine Specific [place] Normal (Normal) Ethyl Alcohol < 10 (<10) mg/dL Ur Creatinine Normal (Normal) Ur Chlamydia DNA (PCR) Not detected N gonorrhoeae DNA (PCR) Not detected MDM Narrative Medical decision making narrative: Patient presents with waxing and waning suicidal ideation in the setting of polysubstance abuse but particularly methamphetamine. He has been evaluated by our social science analyst. Currently rejected by [facility]. We will await follow up evaluation by this ER or by our social science analyst in the morning. Exception of the if he would like to be discharged and is no longer suicidal. Patient care signed out to Dr. Cleaning of the change of shift with disposition pending. <Gualberto Cleaning MD - Last Filed: 03/22/25 15:07> Lab Data Labs: Lab Results 03/21/25 03/21/25 03/21/25 Range/Units 16:07 17:19 17:19 WBC 8.3 (4.5-11.0) X10^3/uL RBC 5.67 (4.5-5.9) X10^6/uL Hgb 16.1 (13.5-17.5) g/dL Hct 47.4 (41-53) % MCV 83.6 (80-100) fL MCH 28.3 (26-34) PG MCHC 33.9 (30-36) % RDW 13.8 (11.6-14.8) % Plt Count 183 (150-400) X10^3/uL Neut % (Auto) 62.8 (50-75) % Lymph % (Auto) 24.7 L (25-40) % [place] % (Auto) 8.7 (3-14) % Eos % (Auto) 2.7 (2-4) % Baso % (Auto) 1.1 (0-2) % Neut # (Auto) 5200 (2089-6273) /uL Lymph # (Auto) 2000 (0796-9150) /uL [place] # (Auto) 700 (0-900) /uL Eos # (Auto) 200 (0-450) /uL Baso # (Auto) 100 (0-100) /uL Sodium 137 (137-145) mmol/L Potassium 4.0 (3.4-5.1) mmol/L Chloride 101 (98-107) mmol/L Carbon Dioxide 28 (22-32) mmol/L BUN 13 (9-20) mg/dL Creatinine 0.70 (0.66-1.25) mg/dL Estimated GFR > 60 (>60) mL/min BUN/Creatinine Ratio 18.6 (6-22) Glucose 201 H (70-99) mg/dL Calcium 9.0 (8.4-10.2) mg/dL Total Bilirubin 0.8 (0.2-1.3) mg/dL AST 35 (17-59) IU/L ALT 34 (<50) IU/L Alkaline Phosphatase 54 (38-126) U/L Total Protein 7.8 (6.3-8.2) g/dL Albumin 4.5 (3.5-5.0) g/dL Globulin 3.3 (1.7-4.1) g/dL Albumin/Globulin Ratio 1.4 (1.0-2.8) TSH 0.76 (0.47-4.68) uIU/mL Urine Color Yellow Urine Appearance Clear Urine pH 5.5 Normal (4.5-8.0) Ur Specific [place] 1.025 (1.000-1.035) Urine Protein 1+ H (Negative) Urine Glucose (UA) Trace H (Negative) g/dL Urine Ketones Trace H (NEGATIVE) Urine Occult Blood Negative (Negative) Urine Nitrate Negative (Negative) Urine Bilirubin 1+ H (NEGATIVE) Ur Bilirubin Confirm Negative (Negative) Urine Urobilinogen 2.0 H (0.2) E.U./dL Ur Leukocyte Esterase Negative (NEGATIVE) Urine RBC None seen (0-5/HPF) Urine WBC 1-5/hpf (0-5/HPF) Ur Squamous Epith Cells None seen (0-5/HPF) Ur Transition Epith Cell None seen (0-5/HPF) Ur Renal Epithelial Cell None seen (0-1/HPF) Urine Bacteria None seen (None) Urine Mucus 4+ H (Negative) Ur Culture Indicated? Cult not indicated Vol Urine Centrifuged 10ml (spun) Salicylates < 1.0 (<20) mg/dL U Opiates 300ng/mL cut Negative (Negative) Ur Oxycodone Screen Negative (Negative) Urine Methadone Screen Negative (Negative) Acetaminophen < 10 (10-30) ug/mL Ur Barbiturates Screen Negative (Negative) U Tricyclic Antidepress Negative (Negative) Ur Phencyclidine Scrn Negative (Negative) Ur Amphetamines Screen Positive H (Negative) U Methamphetamines Scrn Positive H (Negative) Ur MDMA Scrn (Ecstasy) Negative (Negative) U Benzodiazepines Scrn Negative (Negative) Urine Cocaine Screen Negative (Negative) U Marijuana (THC) Screen Negative (Negative) Urine Specific [place] Normal (Normal) Ethyl Alcohol < 10 (<10) mg/dL Ur Creatinine Normal (Normal) Ur Chlamydia DNA (PCR) Not detected N gonorrhoeae DNA (PCR) Not detected MDM Narrative Medical decision making narrative: Patient presents with waxing and waning suicidal ideation in the setting of polysubstance abuse but particularly methamphetamine. He has been evaluated by our social science analyst. Currently rejected by [facility]. We will await follow up evaluation by this ER or by our social science analyst in the morning. Exception of the if he would like to be discharged and is no longer suicidal. Patient care signed out to Dr. Cleaning of the change of shift with disposition pending. 03/21/25, 2330, Black. Sign-out from Dr. Hankins. 30-year-old male with history of polysubstance abuse, intermittent suicidal ideation, evaluated by social science analyst, far has been declined for transfer/admission inpatient by [facility]ing and [facility]. Further constitution by transition social worker when available later tomorrow morning. Hemodynamically stable. Assumed care. 0700, uneventful overnight, BUTCHER SCULLION to further consult, signed out to Dr Mtz. Patient signed out to me at shift change pending final disposition by Dr. Cleaning. All lab work vital signs nurse triage note medication list previous ER visits in all imaging studies reviewed. Patient has been declined several facilities due to history of domestic violence charge. He no longer endorses suicidal ideation homicidal ideation things or hearing voices but does have paranoia that his girlfriend still wants to poison him. He is for voluntary at this point at would like to go home at this time. Social work has assessed the patient also deemed safe to go home set up with crisis line as outpatient. Narcan prepack given here prior to discharge. <Ventura Mtz, DO - Last Filed: 03/22/25 18:19> Lab Data Labs: Lab Results 03/21/25 03/21/25 03/21/25 Range/Units 16:07 17:19 17:19 WBC 8.3 (4.5-11.0) X10^3/uL RBC 5.67 (4.5-5.9) X10^6/uL Hgb 16.1 (13.5-17.5) g/dL Hct 47.4 (41-53) % MCV 83.6 (80-100) fL MCH 28.3 (26-34) PG MCHC 33.9 (30-36) % RDW 13.8 (11.6-14.8) % Plt Count 183 (150-400) X10^3/uL Neut % (Auto) 62.8 (50-75) % Lymph % (Auto) 24.7 L (25-40) % [place] % (Auto) 8.7 (3-14) % Eos % (Auto) 2.7 (2-4) % Baso % (Auto) 1.1 (0-2) % Neut # (Auto) 5200 (2212-2493) /uL Lymph # (Auto) 2000 (5120-2667) /uL [place] # (Auto) 700 (0-900) /uL Eos # (Auto) 200 (0-450) /uL Baso # (Auto) 100 (0-100) /uL Sodium 137 (137-145) mmol/L Potassium 4.0 (3.4-5.1) mmol/L Chloride 101 (98-107) mmol/L Carbon Dioxide 28 (22-32) mmol/L BUN 13 (9-20) mg/dL Creatinine 0.70 (0.66-1.25) mg/dL Estimated GFR > 60 (>60) mL/min BUN/Creatinine Ratio 18.6 (6-22) Glucose 201 H (70-99) mg/dL Calcium 9.0 (8.4-10.2) mg/dL Total Bilirubin 0.8 (0.2-1.3) mg/dL AST 35 (17-59) IU/L ALT 34 (<50) IU/L Alkaline Phosphatase 54 (38-126) U/L Total Protein 7.8 (6.3-8.2) g/dL Albumin 4.5 (3.5-5.0) g/dL Globulin 3.3 (1.7-4.1) g/dL Albumin/Globulin Ratio 1.4 (1.0-2.8) TSH 0.76 (0.47-4.68) uIU/mL Urine Color Yellow Urine Appearance Clear Urine pH 5.5 Normal (4.5-8.0) Ur Specific [place] 1.025 (1.000-1.035) Urine Protein 1+ H (Negative) Urine Glucose (UA) Trace H (Negative) g/dL Urine Ketones Trace H (NEGATIVE) Urine Occult Blood Negative (Negative) Urine Nitrate Negative (Negative) Urine Bilirubin 1+ H (NEGATIVE) Ur Bilirubin Confirm Negative (Negative) Urine Urobilinogen 2.0 H (0.2) E.U./dL Ur Leukocyte Esterase Negative (NEGATIVE) Urine RBC None seen (0-5/HPF) Urine WBC 1-5/hpf (0-5/HPF) Ur Squamous Epith Cells None seen (0-5/HPF) Ur Transition Epith Cell None seen (0-5/HPF) Ur Renal Epithelial Cell None seen (0-1/HPF) Urine Bacteria None seen (None) Urine Mucus 4+ H (Negative) Ur Culture Indicated? Cult not indicated Vol Urine Centrifuged 10ml (spun) Salicylates < 1.0 (<20) mg/dL U Opiates 300ng/mL cut Negative (Negative) Ur Oxycodone Screen Negative (Negative) Urine Methadone Screen Negative (Negative) Acetaminophen < 10 (10-30) ug/mL Ur Barbiturates Screen Negative (Negative) U Tricyclic Antidepress Negative (Negative) Ur Phencyclidine Scrn Negative (Negative) Ur Amphetamines Screen Positive H (Negative) U Methamphetamines Scrn Positive H (Negative) Ur MDMA Scrn (Ecstasy) Negative (Negative) U Benzodiazepines Scrn Negative (Negative) Urine Cocaine Screen Negative (Negative) U Marijuana (THC) Screen Negative (Negative) Urine Specific [place] Normal (Normal) Ethyl Alcohol < 10 (<10) mg/dL Ur Creatinine Normal (Normal) Ur Chlamydia DNA (PCR) Not detected N gonorrhoeae DNA (PCR) Not detected MDM Narrative Medical decision making narrative: Patient presents with waxing and waning suicidal ideation in the setting of polysubstance abuse but particularly methamphetamine. He has been evaluated by our social science analyst. Currently rejected by [facility]. We will await follow up evaluation by this ER or by our social science analyst in the morning. Exception of the if he would like to be discharged and is no longer suicidal. Patient care signed out to Dr. Cleaning of the change of shift with disposition pending. 03/21/25, 2330, Black. Sign-out from Dr. Hankins. 30-year-old male with history of polysubstance abuse, intermittent suicidal ideation, evaluated by social science analyst, far has been declined for transfer/admission inpatient by [facility] and [facility]. Further constitution by transition social worker when available later tomorrow morning. Hemodynamically stable. Assumed care. 0700, uneventful overnight, BUTCHER SCULLION to further consult, signed out to Dr Mtz. Patient signed out to me at shift change pending final disposition by Dr. Cleaning. All lab work vital signs nurse triage note medication list previous ER visits in all imaging studies reviewed. Patient has been declined several facilities due to history of domestic violence charge. He no longer endorses suicidal ideation homicidal ideation things or hearing voices but does have paranoia that his girlfriend still wants to poison him. He is for voluntary at this point at would like to go home at this time. Social work has assessed the patient also deemed safe to go home set up with crisis line as outpatient. Narcan prepack given here prior to discharge. Discharge Plan Departure Patient Disposition: Home Clinical Impression: Paranoid behavior, Polysubstance abuse Instructions: DI for Substance Use Disorder Activity Restrictions/Additional Instructions: Return with new or worsening symptoms. Please call crisis line feeling suicidal or homicidal or having thoughts of suicide or homicide. Prescriptions: No Action Free Style Wendy or Dexcom 1 ea transdermal DIRECTED Qty: 4 12RF (DME) blood-glucose meter [FreeStyle Lite Meter] Kit See Rx Instructions .ROUTE .MEDSUPPLY Qty: 1 Patient Comments: [NO ORIGINAL SIG] Rx Instructions: As directed (DME) lancets [FreeStyle Lancets] 28 gauge misc See Rx Instructions .ROUTE 3XD Qty: 100 Rx Instructions: As directed dapagliflozin propanediol [Farxiga] 5 mg tablet 5 mg PO DAILY (DME) lancets (Ultra touch 2 meter) Qty: 100 11RF Rx Instructions: As directed twice daily for blood sugar testing lisinopril 20 mg tablet 20 mg PO DAILY Qty: 90 3RF atorvastatin 20 mg tablet 20 mg PO BEDTIME Qty: 90 3RF sildenafil (pulm.hypertension) [Revatio] 20 mg tablet 60 mg PO DAILY Qty: 30 5RF Rx Instructions: take up to three tabs a day as needed (DME) glucose meter,test strips,lancets Qty: 1 0RF Rx Instructions: As directed once daily for blood glucose monitoring insulin glargine [Lantus Solostar U-100 Insulin] 100 unit/mL (3 mL) insulin pen 90 unit SUBCUT QPM 90 Days Qty: 81 3RF (DME) pen needle, diabetic [Easy Comfort Pen Bee] 31 gauge x 5/16 needle See Rx Instructions .Route Qty: 180 0RF Rx Instructions: As directed twice daily for insulin injection metformin 1,000 mg tablet 1,000 mg PO BID Qty: 180 1RF ibuprofen [IBU] 400 mg tablet 400 mg PO Q6H PRN (Reason: pain) Qty: 30 0RF oxycodone-acetaminophen 5-325 mg tablet 1 tab PO Q6H PRN (Reason: pain) Qty: 10 0RF hydroxyzine pamoate 25 mg capsule 25 mg PO QID PRN (Reason: muscle spasm) Qty: 20 0RF polyethylene glycol 3350 [Miralax] 17 gram/dose powder 17 g PO DAILY Qty: 238 0RF Referrals: Vel Arreguin MD [Primary Care Provider, Family Practice] Stand Alone Forms: Patient Portal/API
[2025-03-21 16:13] LABS: Add Manual Diff / Slide Review NO; Hematocrit 47.4 % (41-53); Hemoglobin 16.1 g/dL (13.5-17.5); Lymphocytes Absolute Auto 2000 /uL (1100-4500); Mean Corpuscular HGB Conc 33.9 % (30-36); Mean Corpuscular Hemoglobin 28.3 PG (26-34); Mean Corpuscular Volume 83.6 fL (80-100); Platelet Count 183 X10^3/uL (150-400)
[2025-03-21 16:27] LABS: Acetaminophen < 10 ug/mL (10-30); Alanine Aminotransferase 34 IU/L (<50); Albumin 4.5 g/dL (3.5-5.0); Albumin Globulin Ratio 1.4 (1.0-2.8); Alkaline Phosphatase 54 U/L (38-126); Blood Urea Nitrogen 13 mg/dL (9-20); Calcium 9.0 mg/dL (8.4-10.2); Carbon Dioxide 28 mmol/L (22-32); Chloride 101 mmol/L (98-107); Estimated Glomerular Filt Rate > 60 mL/min (>60); Ethanol (ETOH) < 10 mg/dL (<10); Globulin 3.3 g/dL (1.7-4.1); Glucose 201 mg/dL (70-99); HEMOLYSIS 26 (0-50); Potassium 4.0 mmol/L (3.4-5.1); Salicylate < 1.0 mg/dL (<20); Sodium 137 mmol/L (137-145); Total Protein 7.8 g/dL (6.3-8.2)
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
[2025-03-21 17:21] LABS: TSH w/ Reflex to FT4 0.76 uIU/mL (0.47-4.68)
[2025-03-21 17:29] LABS: Appearance Urine UA CLEAR; Bilirubin Urine UA 1+ (NEGATIVE); Color Urine UA YELLOW; Glucose Urine UA TRACE g/dL (Negative); Ketones Urine UA TRACE (NEGATIVE); Leukocyte Esterase Urine UA NEGATIVE (NEGATIVE); Nitrite Urine UA NEGATIVE (Negative); Occult Blood Urine UA NEGATIVE (Negative); Protein Urine UA 1+ (Negative); Specific Gravity Urine UA 1.025 (1.000-1.035); Urobilinogen Urine UA 2.0 E.U./dL (0.2); pH Urine UA 5.5 (4.5-8.0)
[2025-03-21 17:32] LABS: Ur Specific Gravity Normal (Normal)
[2025-03-21 17:33] LABS: UR Morphine/Opiate cutoff 300 Negative (Negative); Urine MDMA Negative (Negative); Urine Methamphetamines Positive (Negative); Urine Tetrahydrocannabinol Negative (Negative); Urine Tricyclic Antidepressant Negative (Negative)
[2025-03-21 17:41] LABS: Ictotest Urine Negative (Negative)
[2025-03-21 17:42] LABS: Culture Indicated Urine Cult Not Indicated
[2025-03-21 18:52] LABS: Urine Chlamydia NOT DETECTED; Urine N gonorrhoeae NOT DETECTED
--- NOTE | 2025-03-21 18:52 | CM.SWNOTE ---
Addendum entered by Linda Zambrano 03/21/25 19:04: [facility] declines patient and recommends a facility like [facility] for patient. LATIN AMERICAN STUDIES PROFESSOR calls [facility], it is reported that they have beds. LATIN AMERICAN STUDIES PROFESSOR reviews this with patient, patient states that he is open to going to [facility]. LATIN AMERICAN STUDIES PROFESSOR to fax clinicals and referral to [facility]. LETITIA Kelley Original Note: ED LATIN AMERICAN STUDIES PROFESSOR Note LATIN AMERICAN STUDIES PROFESSOR calls [facility], it is reported that clinicals have been received and their provider is reviewing patient. It is reported that if patient is accepted patient will need to bring his health maintenance medication specifically his blood pressure medication, Insulin medications and diabetes medications. LATIN AMERICAN STUDIES PROFESSOR reviews this with patient who states that he should have that in his belongings. LATIN AMERICAN STUDIES PROFESSOR informs this to scrap charger. Plan: awaiting disposition from [facility] for detox stabilization. LETITIA Kelley
[2025-03-21 19:14] VITALS: BP 114/60; PULSE 71; RESP 14; O2SAT 99
--- NOTE | 2025-03-21 19:15 | PC.NURSE ---
patient states having mild tremors, some nausea, and visual hallucinations
[2025-03-22 06:23] VITALS: BP 123/79; PULSE 83; RESP 16; TEMP 36.8; O2SAT 99
--- NOTE | 2025-03-22 06:27 | PC.NURSE ---
Spoke to patient about issues with our attempts to find placement. Patient is concerned if he goes home that he will relapse. He would like to stay to work with our STEAM FINISHER to find placement or alternatives to treatment.
[2025-03-22] MEDS: IBUPROFEN 400 MG TABLET 800 MG PO (06:31)
[2025-03-22 14:14] VITALS: BP 131/86; PULSE 90; RESP 18; TEMP 36.4; O2SAT 99
[2025-03-22] MEDS: NALOXONE 4 MG NASAL SPRAY MISC (14:42)
--- NOTE | 2025-03-22 14:54 | PC.NURSE ---
1430: Patient wanting to leave. TEREZA Goss talks with patient. This RN notifies provider Smith. Currently no suicidal ideation or homicidal ideation.
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
== END 2025-03-22 14:55 | disposition home or self-care (01) ==
PROVIDERS: Emergency Medicine; Emergency Provider Family Medicine; PCP Family Medicine
DX: F22 Delusional disorders (principal); F19.10 Other psychoactive substance abuse, uncomplicated
CPT/HCPCS: 80053; 80305; 80320; 80329; 81001; 84443; 85025; 87491; 87591; 99284; A9270; G0480

== ENCOUNTER → 2025-05-18 15:44 | Outpatient (CLI) | payer OTHER, SELFPAY ==
[2025-05-18 17:25] LABS: Hemoglobin A1C% w Est Avg Glu 10.5 % (4.0-6.0)
[2025-05-18 18:15] LABS: Alanine Aminotransferase 24 IU/L (<50); Albumin 4.6 g/dL (3.5-5.0); Albumin Globulin Ratio 1.5 (1.0-2.8); Alkaline Phosphatase 71 U/L (38-126); Blood Urea Nitrogen 15 mg/dL (9-20); Calcium 9.6 mg/dL (8.4-10.2); Carbon Dioxide 22 mmol/L (22-32); Chloride 97 mmol/L (98-107); Estimated Glomerular Filt Rate > 60 mL/min (>60); Globulin 3.1 g/dL (1.7-4.1); HEMOLYSIS < 15 (0-50); Potassium 4.7 mmol/L (3.4-5.1); Sodium 133 mmol/L (137-145); Total Protein 7.7 g/dL (6.3-8.2)
[2025-05-18 20:27] LABS: Glucose 571 mg/dL (70-99)
== END ==
PROVIDERS: Physician Assistant; PCP Family Medicine; Referring Provider Family Medicine; Visit Provider Family Medicine
DX: E11.69 Type 2 diabetes mellitus with other specified complication (principal); E78.5 Hyperlipidemia, unspecified
CPT/HCPCS: 36415; 80053; 82043; 82570; 83036